=== PATIENT | male | born 1975 | race African-American/Black ===

== ENCOUNTER 2017-04-04 22:06 | Emergency (ER) | payer MEDICAID, OTHER ==
[2017-04-04] MEDS ORDERED: Sodium Chloride 0.9% 2.5 ML Syringe FLUSH PRN (23:28)
[2017-04-04] MEDS ORDERED: Sodium Chloride 0.9% 10 ML Syringe FLUSH PRN (23:28)
[2017-04-04] MEDS ORDERED: Ketorolac 30 MG/ML SDV IVPUSH ONE (23:32)
[2017-04-04] MEDS ORDERED: Sodium Chloride 0.9% 1,000 ML IV ONE (23:32)
--- NOTE | 2017-04-04 23:32 | EDM.PDOC ---
ED HPI GENERAL MEDICAL PROBLEM - General Chief Complaint: General Stated Complaint: RT ABDOMINAL PAIN Time Seen by Provider: 04/04/17 23:22 - History of Present Illness INITIAL COMMENTS - FREE TEXT/NARRATIVE: HISTORY AND PHYSICAL: History of present illness: The patient is a 41-year-old male who states no medical history and presents with several weeks of right flank pain which has been on and off but it worsened tonight suddenly a few hours ago and has been radiating to his right lower abdomen. He has not had associated symptoms of fever chills chest pain shortness of breath nausea vomiting or diarrhea. He denies any urinary complaints such as hematuria or dysuria but states that tonight he felt like there was some pressure with his urination. Patient took ibuprofen before coming here and says that it helps. He has had no recent trauma. His no pain or swelling to his testicles The patient denies any midline back pain and has no radiation of the pain to his legs and no lower extremity weakness or neurosensory changes. Review of systems: As per history of present illness and below otherwise all systems reviewed and negative. Past medical history: As per history of present illness and as reviewed below otherwise noncontributory. Surgical history: As per history of present illness and as reviewed below otherwise noncontributory. Social history: No reported history of drug or alcohol abuse. Family history: As per history of present illness and as reviewed below otherwise noncontributory. Physical exam: General: Well-developed thin male who is nontoxic and moves easily in the ED without distress. HEENT: Atraumatic, normocephalic, negative for conjunctival pallor or scleral icterus, mucous membranes moist, throat clear, neck supple, nontender, trachea midline. Lungs: Clear to auscultation, breath sounds equal bilaterally, chest nontender. Heart: S1S2, regular, negative for clicks, rubs, or JVD. Abdomen: Soft, nondistended, nontender. There is no rebound guarding and bowel sounds are normoactive. I cannot elicit the pain on palpation. Negative for masses or hepatosplenomegaly. Negative for costovertebral tenderness. Pelvis: Stable nontender. Genitourinary: Deferred. Rectal: Deferred. Extremities: Atraumatic, negative for cords or calf pain. Neurovascular unremarkable. Neuro: Awake, alert, oriented. Cranial nerves II through XII unremarkable. Cerebellum unremarkable. Motor and sensory unremarkable throughout. Exam nonfocal. Diagnostics: UA urine cultures CBC CMP amylase lipase CT scan of the abdomen and pelvis Therapeutics: IV fluids Toradol Discussed all testing with the patient and will advise followup with provider in outpatient setting for further care and evaluation. Patient states he feels improved after the Toradol and IV fluids Impression: Right flank/abdomen pain etiology unclear stable Definitive disposition and diagnosis as appropriate pending reevaluation and review of above. Right Middle Back Pain Score (Numeric/FACES): 8 - Related Data Allergies Allergy/AdvReac Type Severity Reaction Status Date / Time diazepam [From Valium] Allergy Lightheaded Verified 10/06/16 14:33 ness haloperidol [From Haldol] Allergy Dizziness Verified 10/06/16 14:33 haloperidol lactate Allergy Dizziness Verified 10/06/16 14:33 [From Haldol] lithium Allergy Abdominal Verified 10/06/16 14:33 Cramps quetiapine fumarate Allergy catonic Verified 10/06/16 14:33 [From Seroquel] Home Meds: Home Meds [place] Carbonate 300 mg PO DAILY 04/22/16 [History] Past Medical History - Past Health History Medical/Surgical History: Denies Medical/Surgical History HEENT History: Reports: None Cardiovascular History: Reports: None Respiratory History: Reports: None Gastrointestinal History: Reports: None Genitourinary History: Reports: None Musculoskeletal History: Reports: None Neurological History: Reports: None Psychiatric History: Reports: Bipolar Endocrine/Metabolic History: Reports: None Hematologic History: Reports: None Immunologic History: Reports: None Oncologic (Cancer) History: Reports: None Dermatologic History: Reports: None - Infectious Disease History Infectious Disease History: Reports: None - Past Surgical History Head Surgeries/Procedures: Reports: None HEENT Surgical History: Reports: None Cardiovascular Surgical History: Reports: None Respiratory Surgical History: Reports: None GI Surgical History: Reports: None Male Surgical History: Reports: None Endocrine Surgical History: Reports: None Neurological Surgical History: Reports: None Musculoskeletal Surgical History: Reports: Other (See Below) Oncologic Surgical History: Reports: None Social & Family History - Family History Family Medical History: Noncontributory - Tobacco Use Smoking Status *Q: Current Every Day Smoker Years of Tobacco use: 11 Packs/Tins Daily: 1 Used Tobacco, but Quit: No Second Hand Smoke Exposure: No - Caffeine Use Caffeine Use: Reports: Coffee Caffeine Use Comment: 20 drinks/day - Recreational Drug Use Recreational Drug Use: No ED ROS GENERAL - Review of Systems Review Of Systems: ROS reveals no pertinent complaints other than HPI. ED EXAM, GENERAL - Physical Exam Exam: See Below (See dictation) Course - Vital Signs Last Recorded V/S: Last Vital Signs Temp 36.7 C 04/04/17 22:59 Pulse 59 L 04/04/17 22:59 Resp 16 04/04/17 22:59 BP 100/61 04/04/17 22:59 Pulse Ox 97 04/04/17 22:59 - Orders/Labs/Meds Orders: Active Orders 24 hr Category Date Time Status Abdomen Pelvis w wo Cont [CT] Stat Exams 04/04/17 23:28 Taken CULTURE URINE [RM] Stat Lab 04/04/17 23:18 Received Sodium Chloride 0.9% [Saline Flush] Med 04/04/17 23:28 Active 10 ml FLUSH ASDIRECTED PRN Sodium Chloride 0.9% [Saline Flush] Med 04/04/17 23:28 Active 2.5 ml FLUSH ASDIRECTED PRN Saline Lock Insert [OM.PC] Stat Oth 04/04/17 23:28 Ordered Medication Orders Sodium Chloride (Saline Flush) 10 ml FLUSH ASDIRECTED PRN PRN Reason: Keep Vein Open Sodium Chloride (Saline Flush) 2.5 ml FLUSH ASDIRECTED PRN PRN Reason: Keep Vein Open Labs: Laboratory Tests 04/04/17 04/04/17 04/04/17 Range/Units 23:18 23:33 23:33 WBC 5.45 (4.0-11.0) K/uL RBC 4.43 L (4.50-5.90) M/uL Hgb 12.7 L (13.0-17.0) g/dL Hct 37.9 L (38.0-50.0) % MCV 85.6 (80.0-98.0) fL MCH 28.7 (27.0-32.0) pg MCHC 33.5 (31.0-37.0) g/dL RDW Std Deviation 43.6 (28.0-62.0) fl RDW Coeff of Jose 14 (11.0-15.0) % Plt Count 171 (150-400) K/uL MPV 9.60 (7.40-12.00) fL Neut % (Auto) 36.0 L (48.0-80.0) % Lymph % (Auto) 56.1 H (16.0-40.0) % Schley % (Auto) 6.6 (0.0-15.0) % Eos % (Auto) 0.9 (0.0-7.0) % Baso % (Auto) 0.4 (0.0-1.5) % Neut # (Auto) 2.0 (1.4-5.7) K/uL Lymph # (Auto) 3.1 H (0.6-2.4) K/uL Schley # (Auto) 0.4 (0.0-0.8) K/uL Eos # (Auto) 0.1 (0.0-0.7) K/uL Baso # (Auto) 0.0 (0.0-0.1) K/uL Nucleated RBC % 0.0 /100WBC Nucleated RBCs # 0 K/uL Sodium 137 (136-146) mmol/L Potassium 4.0 (3.5-5.1) mmol/L Chloride 107 (98-110) mmol/L Carbon Dioxide 21 (21-31) mmol/L BUN 15 (6.0-23.0) mg/dL Creatinine 1.1 (0.6-1.5) mg/dL Est Cr Clr Drug Dosing 85.05 mL/min Estimated GFR (MDRD) > 60.0 ml/min Glucose 89 (60-110) mg/dL Calcium 9.2 (8.8-10.8) mg/dL Total Bilirubin 0.5 (0.1-1.5) mg/dL AST 28 (5-40) IU/L ALT 32 (8-54) IU/L Alkaline Phosphatase 67 (40-150) Total Protein 6.9 (6.0-8.0) g/dL Albumin 4.2 (3.5-5.0) g/dL Globulin 2.7 (2.0-3.5) g/dL Albumin/Globulin Ratio 1.6 (1.3-2.8) Amylase 63 (10-90) U/L Lipase 9 (7-80) U/L Urine Color YELLOW Urine Appearance CLEAR Urine pH 6.0 (5.0-8.0) Ur Specific [place] <= 1.005 (1.001-1.035) Urine Protein NEGATIVE (NEGATIVE) mg/dL Urine Glucose (UA) NEGATIVE (NEGATIVE) mg/dL Urine Ketones NEGATIVE (NEGATIVE) mg/dL Urine Occult Blood NEGATIVE (NEGATIVE) Urine Nitrite NEGATIVE (NEGATIVE) Urine Bilirubin NEGATIVE (NEGATIVE) Urine Urobilinogen 0.2 (<2.0) EU/dL Ur Leukocyte Esterase NEGATIVE (NEGATIVE) Urine RBC NONE SEEN (0-2/HPF) Urine WBC NONE SEEN (0-5/HPF) Ur Epithelial Cells RARE (NONE-FEW) Urine Bacteria RARE (NEGATIVE) Meds: Medications Generic Name Dose Route Start Last Admin Trade Name Freq PRN Reason Stop Dose Admin Sodium Chloride 10 ml 04/04/17 23:28 Saline Flush FLUSH ASDIRECTED PRN Keep Vein Open Sodium Chloride 2.5 ml 04/04/17 23:28 Saline Flush FLUSH ASDIRECTED PRN Keep Vein Open Discontinued Medications Generic Name Dose Route Start Last Admin Trade Name Freq PRN Reason Stop Dose Admin Sodium Chloride 1,000 mls @ 999 mls/hr 04/04/17 23:32 04/04/17 23:47 Normal Saline IV 04/05/17 00:32 999 mls/hr STAT ONE Administration Iopamidol 83 ml 04/05/17 00:45 04/05/17 00:45 Isovue Multipack-370 (76%) IVPUSH 04/05/17 00:46 83 ml ONETIME STA Administration Ketorolac Tromethamine 30 mg 04/04/17 23:32 04/04/17 23:48 Toradol IVPUSH 04/04/17 23:33 30 mg ONETIME ONE Administration Departure - Departure Time of Disposition: 01:36 Disposition: Home, Self-Care 01 Condition: good Clinical Impression: Right flank pain - Discharge Information Forms: ED Department Discharge Additional Instructions: The following information is given to patients seen in the emergency department who are being discharged to home. This information is to outline your options for follow-up care. We provide all patients seen in our emergency department with a follow-up referral. The need for follow-up, as well as the timing and circumstances, are variable depending upon the specifics of your emergency department visit. If you don't have a primary care physician on staff, we will provide you with a referral. We always advise you to contact your personal physician following an emergency department visit to inform them of the circumstance of the visit and for follow-up with them and/or the need for any referrals to a consulting specialist. The emergency department will also refer you to a specialist when appropriate. This referral assures that you have the opportunity for followup care with a specialist. All of these measure are taken in an effort to provide you with optimal care, which includes your followup. Under all circumstances we always encourage you to contact your private physician who remains a resource for coordinating your care. When calling for followup care, please make the office aware that this follow-up is from your recent emergency room visit. If for any reason you are refused follow-up, please contact the [facility] emergency department at and ask to speak to the emergency department charge nurse. [facility] Primary care- [place] [address] Push hydration and please call and followup with your provider or one of our clinic physicians this week. Return to ER as needed and as discussed. Please take [id number] ibuprofen 600 mg every 6-8 hours or Tylenol for the discomfort. If you need to use pain medication prescribed to you via [facility] --tramadol - My Orders Last 24 Hours: My Active Orders 04/04/17 23:18 CULTURE URINE [RM] Stat 04/04/17 23:28 Abdomen Pelvis w wo Cont [CT] Stat Sodium Chloride 0.9% [Saline Flush] 10 ml FLUSH ASDIRECTED PRN Sodium Chloride 0.9% [Saline Flush] 2.5 ml FLUSH ASDIRECTED PRN Saline Lock Insert [OM.PC] Stat - Assessment/Plan Last 24 Hours: My Active Orders 04/04/17 23:18 CULTURE URINE [RM] Stat 04/04/17 23:28 Abdomen Pelvis w wo Cont [CT] Stat Sodium Chloride 0.9% [Saline Flush] 10 ml FLUSH ASDIRECTED PRN Sodium Chloride 0.9% [Saline Flush] 2.5 ml FLUSH ASDIRECTED PRN Saline Lock Insert [OM.PC] Stat
[2017-04-05 00:15] LABS: CHLORIDE,CL 107 mmol/L (98-110); SODIUM,NA 137 mmol/L (136-146)
[2017-04-05] MEDS ORDERED: Iopamidol 755 MG/ML 500 ML Multipack Bottle IVPUSH STA (00:45)
[2017-04-05 02:39] VITALS: BP 110/67
--- NOTE | 2017-04-06 16:32 | CT ---
EXAM DATE: 04/04/17 PATIENT'S AGE: 41 Patient: CHEMA LANDEROS Facility: [place], [place] Site . Site : 1975 Study: CT Abdomen/Pelvis W/ and W/O Cont [id number]/14/2017 12:48:37 AM Ordering Physician: Zoila Ware Final Report: INDICATION: Right-sided pain radiating to groin TECHNIQUE: CT abdomen and pelvis acquired without and with 83 cc Isovue 370 IV contrast. COMPARISON: None FINDINGS: Lower chest: Unremarkable. Liver: Unremarkable. Spleen: Unremarkable. Pancreas: Unremarkable. Gallbladder and bile ducts: Unremarkable. Adrenal glands: Unremarkable. Kidneys: Unremarkable. GI tract: Unremarkable. Appendix is not seen on this exam. Vascular structures: Unremarkable. Lymph nodes: Unremarkable. Miscellaneous: Unremarkable. No free air or significant free fluid. Pelvic Organs: Unremarkable. Bones: Unremarkable for age. IMPRESSION: No acute intra-abdominal inflammatory process identified. No renal stone or hydronephrosis. Note that the appendix was not visualized on this exam. Dictated by Pham Ma MD @ Apr 05 2017 1:04AM (Electronic Signature) Report Signed by Proxy. [facility] CENTERAshok
== END 2017-04-05 02:05 | disposition home or self-care (01) ==
LOC: MW.ED 22:06
DX: R10.9 Unspecified abdominal pain (principal); F17.210 Nicotine dependence, cigarettes, uncomplicated; Z88.8 Allergy status to other drugs, medicaments and biological substances; Z88.6 Allergy status to analgesic agent; Z79.899 Other long term (current) drug therapy
CPT/HCPCS: 74178; 80053; 81001; 82150; 83690; 85025; 87086; 96361; 96374; 99284; J1885; J7040; Q9967

== ENCOUNTER 2017-06-15 11:59 | Emergency (ER) | payer SELFPAY ==
--- NOTE | 2017-06-15 12:52 | EDM.PDOC ---
ED HPI GENERAL MEDICAL PROBLEM - General Chief Complaint: Lower Extremity Injury/Pain Stated Complaint: BACK PAIN Time Seen by Provider: 06/15/17 12:04 Source of Information: Reports: Patient History Limitations: Reports: No Limitations - History of Present Illness INITIAL COMMENTS - FREE TEXT/NARRATIVE: History of present illness: []Patient complains of right flank pain radiating to his right groin. He denies any blood or with urination, fevers, chills, nausea or vomiting. Patient apparently told triage nurse that he is having leg pain however he adamantly denies this to me and states when he was a child he broke his tooth and had a shot in his right but ever since then he has had leg itching sensations in his posterior thigh. He is not having any of this at this time and is not related to his right lower back pain. Review of systems: As per history of present illness and below otherwise all systems reviewed and negative. Past medical history: As per history of present illness and as reviewed below otherwise noncontributory. Surgical history: As per history of present illness and as reviewed below otherwise noncontributory. Social history: No reported history of drug or alcohol abuse. Family history: As per history of present illness and as reviewed below otherwise noncontributory. Physical exam: General: Well developed, well nourished in NAD HEENT: Atraumatic, normocephalic, pupils reactive, negative for conjunctival pallor or scleral icterus, mucous membranes moist, throat clear, neck supple, nontender, trachea midline. Lungs: Clear to auscultation, breath sounds equal bilaterally, chest nontender. Heart: S1S2, regular, negative for clicks, rubs, or JVD. Abdomen: Soft, nondistended, nontender. Negative for masses or hepatosplenomegaly. Negative for costovertebral tenderness. Pelvis: Stable nontender. Genitourinary: Deferred. Rectal: Deferred. Extremities: Atraumatic, negative for cords or calf pain. Neurovascular unremarkable. Neuro: Awake, alert, oriented. Cranial nerves II through XII unremarkable. Cerebellum unremarkable. Motor and sensory unremarkable throughout. Exam nonfocal. Diagnostics: []UA negative for blood Therapeutics: []Toradol was given with improvement of pain Impression: []Chronic low back pain Plan: []Motrin for pain, follow-up with a regular physician Definitive disposition and diagnosis as appropriate pending reevaluation and review of above. right lower extremity Pain Score (Numeric/FACES): 10 - Related Data Allergies Allergy/AdvReac Type Severity Reaction Status Date / Time diazepam [From Valium] Allergy Lightheaded Verified 06/15/17 12:21 ness haloperidol [From Haldol] Allergy Dizziness Verified 06/15/17 12:21 haloperidol lactate Allergy Dizziness Verified 06/15/17 12:21 [From Haldol] lithium Allergy Abdominal Verified 06/15/17 12:21 Cramps quetiapine fumarate Allergy catonic Verified 06/15/17 12:21 [From Seroquel] Home Meds: Home Meds [place] Carbonate 300 mg PO DAILY 04/22/16 [History] Past Medical History - Past Health History Medical/Surgical History: Denies Medical/Surgical History HEENT History: Reports: None Cardiovascular History: Reports: None Respiratory History: Reports: None Gastrointestinal History: Reports: None Genitourinary History: Reports: None Musculoskeletal History: Reports: None Neurological History: Reports: None Psychiatric History: Reports: Bipolar Endocrine/Metabolic History: Reports: None Hematologic History: Reports: None Immunologic History: Reports: None Oncologic (Cancer) History: Reports: None Dermatologic History: Reports: None - Infectious Disease History Infectious Disease History: Reports: None - Past Surgical History Head Surgeries/Procedures: Reports: None HEENT Surgical History: Reports: None Cardiovascular Surgical History: Reports: None Respiratory Surgical History: Reports: None GI Surgical History: Reports: None Male Surgical History: Reports: None Endocrine Surgical History: Reports: None Neurological Surgical History: Reports: None Musculoskeletal Surgical History: Reports: Other (See Below) Oncologic Surgical History: Reports: None Social & Family History - Family History Family Medical History: Noncontributory - Tobacco Use Smoking Status *Q: Current Every Day Smoker Years of Tobacco use: 10 Packs/Tins Daily: 1 Used Tobacco, but Quit: No Second Hand Smoke Exposure: No - Caffeine Use Caffeine Use: Reports: Coffee Caffeine Use Comment: 20 drinks/day - Recreational Drug Use Recreational Drug Use: No Review of Systems - Review of Systems Review Of Systems: See Below ED EXAM, GENERAL - Physical Exam Exam: See Below (See history of present illness) Course - Vital Signs Last Recorded V/S: Last Vital Signs Temp 36.9 C 06/15/17 12:10 Pulse 63 06/15/17 12:10 Resp 18 06/15/17 12:10 BP 109/58 L 06/15/17 12:10 Pulse Ox 96 06/15/17 12:10 - Orders/Labs/Meds Labs: Laboratory Tests 06/15/17 Range/Units 13:10 Urine Color YELLOW Urine Appearance CLEAR Urine pH 6.0 (5.0-8.0) Ur Specific [place] 1.010 (1.001-1.035) Urine Protein NEGATIVE (NEGATIVE) mg/dL Urine Glucose (UA) NEGATIVE (NEGATIVE) mg/dL Urine Ketones TRACE H (NEGATIVE) mg/dL Urine Occult Blood NEGATIVE (NEGATIVE) Urine Nitrite NEGATIVE (NEGATIVE) Urine Bilirubin NEGATIVE (NEGATIVE) Urine Urobilinogen 0.2 (<2.0) EU/dL Ur Leukocyte Esterase NEGATIVE (NEGATIVE) Urine RBC 0-1 (0-2/HPF) Urine WBC 0-1 (0-5/HPF) Ur Epithelial Cells RARE (NONE-FEW) Urine Bacteria RARE (NEGATIVE) Meds: Medications Discontinued Medications Generic Name Dose Route Start Last Admin Trade Name Eliasq PRN Reason Stop Dose Admin Ketorolac Tromethamine 60 mg 06/15/17 12:59 06/15/17 13:32 Toradol IM 06/15/17 13:00 60 mg ONETIME ONE Administration Departure - Departure Time of Disposition: 14:01 Disposition: Home, Self-Care 01 Condition: Good Clinical Impression: Right flank pain, chronic - Discharge Information Forms: ED Department Discharge Additional Instructions: The following information is given to patients seen in the emergency department who are being discharged to home. This information is to outline your options for follow-up care. We provide all patients seen in our emergency department with a follow-up referral. The need for follow-up, as well as the timing and circumstances, are variable depending upon the specifics of your emergency department visit. If you don't have a primary care physician on staff, we will provide you with a referral. We always advise you to contact your personal physician following an emergency department visit to inform them of the circumstance of the visit and for follow-up with them and/or the need for any referrals to a consulting specialist. The emergency department will also refer you to a specialist when appropriate. This referral assures that you have the opportunity for follow-up care with a specialist. All of these measure are taken in an effort to provide you with optimal care, which includes your follow-up. Under all circumstances we always encourage you to contact your private physician who remains a resource for coordinating your care. When calling for follow-up care, please make the office aware that this follow-up is from your recent emergency room visit. If for any reason you are refused follow-up, please contact the [facility] Emergency Department at and asked to speak to the emergency department charge nurse. Christian for pain ice to back follow-up with primary care [facility] Primary Care [facility] [place] [id number]
[2017-06-15] MEDS ORDERED: Ketorolac 60 MG/2 ML SDV IM ONE (12:59)
[2017-06-15 14:22] VITALS: BP 138/63
== END 2017-06-15 14:15 | disposition home or self-care (01) ==
LOC: MW.ED 11:59
DX: M54.5 Low back pain (principal); R10.9 Unspecified abdominal pain; F17.210 Nicotine dependence, cigarettes, uncomplicated; Z88.5 Allergy status to narcotic agent; Z88.8 Allergy status to other drugs, medicaments and biological substances; Z79.899 Other long term (current) drug therapy
CPT/HCPCS: 81001; 96372; 99283; J1885

== ENCOUNTER 2017-07-04 12:57 | Emergency (ER) | payer OTHER ==
[2017-07-04] MEDS ORDERED: Ketorolac 60 MG/2 ML SDV IM ONE (13:29)
--- NOTE | 2017-07-04 13:35 | EDM.PDOC ---
ED HPI GENERAL MEDICAL PROBLEM - General Chief Complaint: Back Pain or Injury Stated Complaint: BACK PAIN Time Seen by Provider: 07/04/17 13:20 Source of Information: Reports: Patient History Limitations: Reports: No Limitations - History of Present Illness INITIAL COMMENTS - FREE TEXT/NARRATIVE: HISTORY AND PHYSICAL: History of present illness: [Patient comes to the emergency room complaining of chronic low back pain. He is well-known to this ER and has been seen in the past for the same complaints. He states that his pain is unchanged but that he has run out of diclofenac and requests a refill. He is also received an injection for his low back pain and he would like this repeated today as well. He has no other complaints or concern. He denies radiation of his pain. No new pain locations for change in his pain. He has been unable to establish care with a local PCP as he is still waiting to be eligible for insurance through his job. He denies fever and chills. No change to bowel or bladder. No blood in his urine. No abdominal pain, nausea or vomiting. No difficulty urinating or hematuria.] Review of systems: As per history of present illness and below otherwise all systems reviewed and negative. Past medical history: As per history of present illness and as reviewed below otherwise noncontributory. Surgical history: As per history of present illness and as reviewed below otherwise noncontributory. Social history: No reported history of drug or alcohol abuse. Family history: As per history of present illness and as reviewed below otherwise noncontributory. Physical exam: HEENT: Atraumatic, normocephalic.sounds equal bilaterally, chest nontender. Back: He is tender over lumbar spine musculature. No diminished range of motion. Patellar reflexes 2+ and equal. Extremities: Neurovascular unremarkable. Neuro: Awake, alert, oriented. Motor and sensory unremarkable throughout. Exam nonfocal. Therapeutics: [Toradol 60 mg IM] Impression: [Low back pain, chronic] Plan: [Discussed with patient that he certainly needs to follow-up with a PCP when he gets insurance. Rx written for diclofenac 50 mg #30 si by mouth 3 times a day 0 refills. Toradol 60 mg given IM in the ER. Patients in agreement with today's plan. All of his questions are answered and concerns are addressed.] Definitive disposition and diagnosis as appropriate pending reevaluation and review of above. Back Pain Score (Numeric/FACES): 10 - Related Data Allergies Allergy/AdvReac Type Severity Reaction Status Date / Time diazepam [From Valium] Allergy Lightheaded Verified 07/04/17 13:27 ness haloperidol [From Haldol] Allergy Dizziness Verified 07/04/17 13:27 haloperidol lactate Allergy Dizziness Verified 07/04/17 13:27 [From Haldol] lithium Allergy Abdominal Verified 07/04/17 13:27 Cramps quetiapine fumarate Allergy catonic Verified 07/04/17 13:27 [From Seroquel] Home Meds: Home Meds [place] Carbonate 300 mg PO DAILY 04/22/16 [History] Past Medical History - Past Health History Medical/Surgical History: Denies Medical/Surgical History HEENT History: Reports: None Cardiovascular History: Reports: None Respiratory History: Reports: None Gastrointestinal History: Reports: None Genitourinary History: Reports: None Musculoskeletal History: Reports: None Neurological History: Reports: None Psychiatric History: Reports: Bipolar Endocrine/Metabolic History: Reports: None Hematologic History: Reports: None Immunologic History: Reports: None Oncologic (Cancer) History: Reports: None Dermatologic History: Reports: None - Infectious Disease History Infectious Disease History: Reports: None - Past Surgical History Head Surgeries/Procedures: Reports: None HEENT Surgical History: Reports: None Cardiovascular Surgical History: Reports: None Respiratory Surgical History: Reports: None GI Surgical History: Reports: None Male Surgical History: Reports: None Endocrine Surgical History: Reports: None Neurological Surgical History: Reports: None Musculoskeletal Surgical History: Reports: Other (See Below) Oncologic Surgical History: Reports: None Social & Family History - Family History Family Medical History: Noncontributory - Tobacco Use Smoking Status *Q: Never Smoker Years of Tobacco use: 10 Packs/Tins Daily: 1 Used Tobacco, but Quit: No Second Hand Smoke Exposure: No - Caffeine Use Caffeine Use: Reports: Coffee Caffeine Use Comment: 20 drinks/day - Recreational Drug Use Recreational Drug Use: No ED ROS GENERAL - Review of Systems Review Of Systems: ROS reveals no pertinent complaints other than HPI. ED EXAM,LOWER BACK PAIN/INJURY - Physical Exam Exam: See Below Course - Vital Signs Last Recorded V/S: Last Vital Signs Temp 98.0 F 07/04/17 13:13 Pulse 75 07/04/17 13:13 Resp 16 07/04/17 13:13 BP 124/74 07/04/17 13:13 Pulse Ox 95 07/04/17 13:13 - Orders/Labs/Meds Meds: Medications Discontinued Medications Generic Name Dose Route Start Last Admin Trade Name Jelani PRN Reason Stop Dose Admin Ketorolac Tromethamine 60 mg 07/04/17 13:29 07/04/17 13:47 Toradol IM 07/04/17 13:30 60 mg ONETIME ONE Administration Departure - Departure Time of Disposition: 13:40 Disposition: Home, Self-Care 01 Condition: Good Clinical Impression: Chronic low back pain - Discharge Information Instructions: Back Pain, Adult, [id number] Referrals: PCP,None [Primary Care Provider] - Forms: ED Department Discharge Additional Instructions: The following information is given to patients seen in the emergency department who are being discharged to home. This information is to outline your options for follow-up care. We provide all patients seen in our emergency department with a follow-up referral. The need for follow-up, as well as the timing and circumstances, are variable depending upon the specifics of your emergency department visit. If you don't have a primary care physician on staff, we will provide you with a referral. We always advise you to contact your personal physician following an emergency department visit to inform them of the circumstance of the visit and for follow-up with them and/or the need for any referrals to a consulting specialist. The emergency department will also refer you to a specialist when appropriate. This referral assures that you have the opportunity for follow-up care with a specialist. All of these measure are taken in an effort to provide you with optimal care, which includes your follow-up. Under all circumstances we always encourage you to contact your private physician who remains a resource for coordinating your care. When calling for follow-up care, please make the office aware that this follow-up is from your recent emergency room visit. If for any reason you are refused follow-up, please contact the [facility] emergency department at and asked to speak to the emergency department charge nurse. [address] [address] [facility] [address] [place] [id number] Follow-up with a local primary care provider at the clinic listed above when you get insurance. Take medications as prescribed. Return to ER as needed as discussed.
[2017-07-04 16:23] VITALS: BP 125/73
== END 2017-07-04 14:12 | disposition home or self-care (01) ==
LOC: MW.ED 12:57
DX: G89.29 Other chronic pain (principal); M54.5 Low back pain; Z88.5 Allergy status to narcotic agent; Z79.899 Other long term (current) drug therapy
CPT/HCPCS: 96372; 99283; J1885; 99282

== ENCOUNTER 2017-08-23 13:00 | Emergency (ER) | payer OTHER ==
--- NOTE | 2017-08-23 14:29 | EDM.PDOC ---
ED HPI GENERAL MEDICAL PROBLEM - General Chief Complaint: Back Pain or Injury Stated Complaint: BACK PAIN Time Seen by Provider: 08/23/17 14:25 Source of Information: Reports: Patient History Limitations: Reports: No Limitations - History of Present Illness INITIAL COMMENTS - FREE TEXT/NARRATIVE: HISTORY AND PHYSICAL: []42-year-old black male presenting to the emergency department with chronic back pain. Patient is well-known to the ER staff. 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 Patient relates no injury associated with this pain Pain is in the same areas as he has previously stated lumbar on the right side and thoracic on the left Review of Systems: As per history of present illness and below otherwise all systems reviewed and negative. Past medical history: As per history of present illness and as reviewed below otherwise noncontributory. Surgical history: As per history of present illness and as reviewed below otherwise noncontributory. Social history: No reported history of drug or alcohol abuse. Family history: As per history of present illness and as reviewed below otherwise noncontributory. Physical exam: Alert and oriented gentleman who states that he has no insurance and cannot see his primary care provider to take care of this or be referred to a specialist HEENT: Atraumatic, normocehpalic, pupils reactive, negative for conjunctival pallor or scleral icterus, mucous membranes moist, throat clear, neck supple, nontender, trachea midline. Lungs: Clear to auscultation, breath sounds equal bilaterally, chest non tender. Heart: S1S2, regular, negative for clicks, rubs, or JVD. Abdomen: Soft, nondistended, nontender. Negative for masses or hepatossplenmegaly. Negative for costovertebral tenderness. Patient is tender to the right lumbar radiates down to his upper thigh but this is unchanged and does not radiate to his foot or lower leg. Worsening of the left thoracic with some edema present you can see spasms noted to this area Pelvis: Stable nontender. Genitourinary: Deferred. Rectal: Deferred Extremities: Atraumatic, negative for cords or calf pain. Neurovascular unremarkable. Neuro: Awake, alert, oriented. Cranial nerves II through XII unremarkable. Cerebellum unremarkable. Motor and sensory unremarkable throughout. Exam nonfocal. Diagnostics: [] Therapeutics: [Toradol 60 IM Norflex] Impression: [Chronic back pain] Plan: [Encouraged to establish with primary care He needs physical therapy to strengthen this area A note was given for work] Definitive disposition and diagnosis as appropriate pending reevaluation and review of above. Duration: Chronic Location: Reports: Back Lower Back Pain Score (Numeric/FACES): 10 - Related Data Allergies Allergy/AdvReac Type Severity Reaction Status Date / Time diazepam [From Valium] Allergy Lightheaded Verified 07/04/17 13:27 ness haloperidol [From Haldol] Allergy Dizziness Verified 07/04/17 13:27 haloperidol lactate Allergy Dizziness Verified 07/04/17 13:27 [From Haldol] lithium Allergy Abdominal Verified 07/04/17 13:27 Cramps quetiapine fumarate Allergy catonic Verified 07/04/17 13:27 [From Seroquel] Home Meds: Home Meds [place] Carbonate 300 mg PO DAILY 04/22/16 [History] Cyclobenzaprine [Flexeril] 10 mg PO TID #21 tablet 08/23/17 [Rx] Diclofenac Sodium [Diclofenac Sodium ER] 100 mg PO DAILY #21 tab.sr.24h [Rx] Past Medical History - Past Health History Medical/Surgical History: Denies Medical/Surgical History HEENT History: Reports: None Cardiovascular History: Reports: None Respiratory History: Reports: None Gastrointestinal History: Reports: None Genitourinary History: Reports: None Musculoskeletal History: Reports: None Neurological History: Reports: None Psychiatric History: Reports: Bipolar Endocrine/Metabolic History: Reports: None Hematologic History: Reports: None Immunologic History: Reports: None Oncologic (Cancer) History: Reports: None Dermatologic History: Reports: None - Infectious Disease History Infectious Disease History: Reports: None - Past Surgical History Head Surgeries/Procedures: Reports: None HEENT Surgical History: Reports: None Cardiovascular Surgical History: Reports: None Respiratory Surgical History: Reports: None GI Surgical History: Reports: None Male Surgical History: Reports: None Endocrine Surgical History: Reports: None Neurological Surgical History: Reports: None Musculoskeletal Surgical History: Reports: Other (See Below) Oncologic Surgical History: Reports: None Social & Family History - Family History Family Medical History: Noncontributory - Tobacco Use Smoking Status *Q: Current Every Day Smoker Years of Tobacco use: 11 Packs/Tins Daily: 1 Used Tobacco, but Quit: No Second Hand Smoke Exposure: No - Caffeine Use Caffeine Use: Reports: Coffee Caffeine Use Comment: 20 drinks/day - Recreational Drug Use Recreational Drug Use: No ED ROS GENERAL - Review of Systems Review Of Systems: ROS reveals no pertinent complaints other than HPI. ED EXAM,LOWER BACK PAIN/INJURY - Physical Exam Exam: See Below (See dictation) Course - Vital Signs Last Recorded V/S: Last Vital Signs Temp 36.7 C 08/23/17 13:40 Pulse 64 08/23/17 13:40 Resp 18 08/23/17 13:40 BP 130/67 08/23/17 13:40 Pulse Ox 99 08/23/17 13:40 Departure - Departure Time of Disposition: 14:36 Disposition: Home, Self-Care 01 Condition: Good Clinical Impression: Chronic back pain Qualifiers: Back pain location: low back pain Back pain laterality: bilateral Sciatica presence: without sciatica Qualified Code(s): M54.5 - Low back pain; G89.29 - Other chronic pain; G89.29 - Other chronic pain - Discharge Information Prescriptions: Cyclobenzaprine [Flexeril] 10 mg PO TID #21 tablet Diclofenac Sodium [Diclofenac Sodium ER] 100 mg PO DAILY #21 tab.sr.24h Instructions: Muscle Strain, [id number] Referrals: PCP,None [Primary Care Provider] - Forms: ED Department Discharge
[2017-08-23] MEDS ORDERED: Ketorolac 60 MG/2 ML SDV IM ONE (14:44)
[2017-08-23 15:20] VITALS: BP 110/58
== END 2017-08-23 15:20 | disposition home or self-care (01) ==
LOC: MW.ED 13:00
DX: M54.5 Low back pain (principal); G89.29 Other chronic pain; F17.210 Nicotine dependence, cigarettes, uncomplicated; Z88.5 Allergy status to narcotic agent; Z88.8 Allergy status to other drugs, medicaments and biological substances; Z79.899 Other long term (current) drug therapy
CPT/HCPCS: 96372; 99283; J1885; J2360; 99282

== ENCOUNTER 2017-09-23 14:40 | Emergency (ER) | payer SELFPAY ==
[2017-09-23 14:49] VITALS: BP 101/63
--- NOTE | 2017-09-23 14:53 | EDM.PDOC ---
ED HPI GENERAL MEDICAL PROBLEM - General Chief Complaint: Back Pain or Injury Stated Complaint: back pain Time Seen by Provider: 09/23/17 14:45 - History of Present Illness INITIAL COMMENTS - FREE TEXT/NARRATIVE: HISTORY AND PHYSICAL: History of present illness: Patient is 42-year-old male history of chronic back pain who presents with a concern of back pain he has been seen here multiple times for same he denies numbness weakness incontinence or retention bowel or bladder denies other concern Review of systems: As per history of present illness and below otherwise all systems reviewed and negative. Past medical history: As per history of present illness and as reviewed below otherwise noncontributory. Surgical history: As per history of present illness and as reviewed below otherwise noncontributory. Social history: No reported history of drug or alcohol abuse. Family history: As per history of present illness and as reviewed below otherwise noncontributory. Physical exam: HEENT: Atraumatic, normocephalic, pupils reactive, negative for conjunctival pallor or scleral icterus, mucous membranes moist, throat clear, neck supple, nontender, trachea midline. Lungs: Clear to auscultation, breath sounds equal bilaterally, chest nontender. Heart: S1S2, regular, negative for clicks, rubs, or JVD. Abdomen: Soft, nondistended, nontender. Negative for masses or hepatosplenomegaly. Negative for costovertebral tenderness. Pelvis: Stable nontender. Genitourinary: Deferred. Rectal: Deferred. Extremities: Atraumatic, negative for cords or calf pain. Neurovascular unremarkable. Neuro: Awake, alert, oriented. Cranial nerves II through XII unremarkable. Cerebellum unremarkable. Motor and sensory unremarkable throughout. Exam nonfocal. Back: Patient has no vertebral body or point tenderness is able stand on his toes back on his heels deep tendon reflexes are normal motor and sensory are normal Diagnostics: None Therapeutics: None Impression: #1 chronic back pain Definitive disposition and diagnosis as appropriate pending reevaluation and review of above. Back Pain Score (Numeric/FACES): 10 - Related Data Allergies Allergy/AdvReac Type Severity Reaction Status Date / Time diazepam [From Valium] Allergy Lightheaded Verified 09/23/17 14:49 ness haloperidol [From Haldol] Allergy Dizziness Verified 09/23/17 14:49 haloperidol lactate Allergy Dizziness Verified 09/23/17 14:49 [From Haldol] lithium Allergy Abdominal Verified 09/23/17 14:49 Cramps quetiapine fumarate Allergy catonic Verified 09/23/17 14:49 [From Seroquel] Home Meds: Home Meds [place] Carbonate 300 mg PO DAILY 04/22/16 [History] Cyclobenzaprine [Flexeril] 10 mg PO TID #21 tablet 08/23/17 [Rx] Diclofenac Sodium [Diclofenac Sodium ER] 100 mg PO DAILY #21 tab.sr.24h [Rx] Past Medical History - Past Health History Medical/Surgical History: Denies Medical/Surgical History HEENT History: Reports: None Cardiovascular History: Reports: None Respiratory History: Reports: None Gastrointestinal History: Reports: None Genitourinary History: Reports: None Musculoskeletal History: Reports: None Neurological History: Reports: None Psychiatric History: Reports: Bipolar Endocrine/Metabolic History: Reports: None Hematologic History: Reports: None Immunologic History: Reports: None Oncologic (Cancer) History: Reports: None Dermatologic History: Reports: None - Infectious Disease History Infectious Disease History: Reports: None - Past Surgical History Head Surgeries/Procedures: Reports: None HEENT Surgical History: Reports: None Cardiovascular Surgical History: Reports: None Respiratory Surgical History: Reports: None GI Surgical History: Reports: None Male Surgical History: Reports: None Endocrine Surgical History: Reports: None Neurological Surgical History: Reports: None Musculoskeletal Surgical History: Reports: Other (See Below) Oncologic Surgical History: Reports: None Social & Family History - Family History Family Medical History: Noncontributory - Tobacco Use Smoking Status *Q: Current Every Day Smoker Years of Tobacco use: 11 Packs/Tins Daily: 1 Used Tobacco, but Quit: No Second Hand Smoke Exposure: No - Caffeine Use Caffeine Use: Reports: Coffee Caffeine Use Comment: 20 drinks/day - Recreational Drug Use Recreational Drug Use: No ED ROS GENERAL - Review of Systems Review Of Systems: ROS reveals no pertinent complaints other than HPI. ED EXAM, GENERAL - Physical Exam Exam: See Below (The dictation) Course - Vital Signs Last Recorded V/S: Last Vital Signs Temp 36.2 C 09/23/17 14:45 Pulse 61 09/23/17 14:45 Resp 16 09/23/17 14:45 BP 101/63 09/23/17 14:45 Pulse Ox 98 09/23/17 14:45 Departure - Departure Time of Disposition: 14:51 Disposition: Home, Self-Care 01 Condition: Good Clinical Impression: Chronic back pain - Discharge Information Referrals: PCP,None [Primary Care Provider] - Additional Instructions: The following information is given to patients seen in the emergency department who are being discharged to home. This information is to outline your options for follow-up care. We provide all patients seen in our emergency department with a follow-up referral. The need for follow-up, as well as the timing and circumstances, are variable depending upon the specifics of your emergency department visit. If you don't have a primary care physician on staff, we will provide you with a referral. We always advise you to contact your personal physician following an emergency department visit to inform them of the circumstance of the visit and for follow-up with them and/or the need for any referrals to a consulting specialist. The emergency department will also refer you to a specialist when appropriate. This referral assures that you have the opportunity for followup care with a specialist. All of these measure are taken in an effort to provide you with optimal care, which includes your followup. Under all circumstances we always encourage you to contact your private physician who remains a resource for coordinating your care. When calling for followup care, please make the office aware that this follow-up is from your recent emergency room visit. If for any reason you are refused follow-up, please contact the [facility] emergency department at and asked to speak to the emergency department charge nurse. EL[facility] [address] [place] [id number] [facility] [address] [place] [id number] Motrin as prescribed call to schedule a routine appointment with primary care above and pain clinic return as needed as discussed
== END 2017-09-23 15:15 | disposition home or self-care (01) ==
LOC: MW.ED 14:40
DX: G89.29 Other chronic pain (principal); M54.9 Dorsalgia, unspecified; F17.210 Nicotine dependence, cigarettes, uncomplicated; Z79.899 Other long term (current) drug therapy; Z88.8 Allergy status to other drugs, medicaments and biological substances
CPT/HCPCS: 99283

== ENCOUNTER 2017-09-25 18:30 | Emergency (ER) | payer SELFPAY ==
[2017-09-25 18:54] VITALS: BP 112/63
--- NOTE | 2017-09-25 19:21 | EDM.PDOC ---
ED HPI GENERAL MEDICAL PROBLEM - General Chief Complaint: General Stated Complaint: BACK PAIN Time Seen by Provider: 09/25/17 18:55 Source of Information: Reports: Patient History Limitations: Reports: No Limitations - History of Present Illness INITIAL COMMENTS - FREE TEXT/NARRATIVE: HISTORY AND PHYSICAL: History of present illness: [Patient comes to the emergency room reporting that he has a history of bipolar disorder and has been manic for many years. He is unable to get scheduled with a psychiatrist until October 11. He feels that this is too long to wait. His thoughts are fast and he has difficulty sleeping which is one of his primary concerns today. He has not been on lithium for several years but would like to restart this. He denies any thoughts of suicide, self-harm or homicide. He has no other complaints today.] Review of systems: As per history of present illness and below otherwise all systems reviewed and negative. Past medical history: As per history of present illness and as reviewed below otherwise noncontributory. Surgical history: As per history of present illness and as reviewed below otherwise noncontributory. Social history: No reported history of drug or alcohol abuse. Family history: As per history of present illness and as reviewed below otherwise noncontributory. Physical exam: HEENT: Atraumatic, normocephalic. Extremities: Neurovascular unremarkable. Neuro: Awake, alert, oriented. Speech is fast and thoughts are congruent. Motor and sensory unremarkable throughout. Exam nonfocal. Impression: [Torrie, bipolar disorder] Plan: [Recommend melatonin, available [id number], as needed for sleep. He is given a handout for [facility] walk-in hours. He is encouraged to follow-up there on Thursday to be evaluated. He verbalized understanding of today' s discussion. All of his questions are answered and concerns are addressed.] Definitive disposition and diagnosis as appropriate pending reevaluation and review of above. Headache Pain Score (Numeric/FACES): 8 - Related Data Allergies Allergy/AdvReac Type Severity Reaction Status Date / Time diazepam [From Valium] Allergy Lightheaded Verified 09/25/17 18:54 ness haloperidol [From Haldol] Allergy Dizziness Verified 09/25/17 18:54 haloperidol lactate Allergy Dizziness Verified 09/25/17 18:54 [From Haldol] lithium Allergy Abdominal Verified 09/25/17 18:54 Cramps quetiapine fumarate Allergy catonic Verified 09/25/17 18:54 [From Seroquel] Home Meds: Home Meds [place] Carbonate 300 mg PO DAILY 04/22/16 [History] Cyclobenzaprine [Flexeril] 10 mg PO TID #21 tablet 08/23/17 [Rx] Diclofenac Sodium [Diclofenac Sodium ER] 100 mg PO DAILY #21 tab.sr.24h [Rx] Past Medical History - Past Health History Medical/Surgical History: Denies Medical/Surgical History HEENT History: Reports: None Cardiovascular History: Reports: None Respiratory History: Reports: None Gastrointestinal History: Reports: None Genitourinary History: Reports: None Musculoskeletal History: Reports: None Neurological History: Reports: None Psychiatric History: Reports: Bipolar Endocrine/Metabolic History: Reports: None Hematologic History: Reports: None Immunologic History: Reports: None Oncologic (Cancer) History: Reports: None Dermatologic History: Reports: None - Infectious Disease History Infectious Disease History: Reports: None - Past Surgical History Head Surgeries/Procedures: Reports: None HEENT Surgical History: Reports: None Cardiovascular Surgical History: Reports: None Respiratory Surgical History: Reports: None GI Surgical History: Reports: None Male Surgical History: Reports: None Endocrine Surgical History: Reports: None Neurological Surgical History: Reports: None Musculoskeletal Surgical History: Reports: Other (See Below) Oncologic Surgical History: Reports: None Social & Family History - Family History Family Medical History: Noncontributory - Tobacco Use Smoking Status *Q: Never Smoker Years of Tobacco use: 11 Packs/Tins Daily: 1 Used Tobacco, but Quit: No Second Hand Smoke Exposure: No - Caffeine Use Caffeine Use: Reports: Coffee Caffeine Use Comment: 20 drinks/day - Recreational Drug Use Recreational Drug Use: No ED ROS GENERAL - Review of Systems Review Of Systems: ROS reveals no pertinent complaints other than HPI. ED EXAM, GENERAL - Physical Exam Exam: See Below Course - Vital Signs Last Recorded V/S: Last Vital Signs Temp 98.5 F 09/25/17 18:52 Pulse 85 09/25/17 18:52 Resp 18 09/25/17 18:52 BP 112/63 09/25/17 18:52 Pulse Ox 95 09/25/17 18:52 Departure - Departure Time of Disposition: 19:22 Disposition: Home, Self-Care 01 Condition: Good Clinical Impression: Torrie - Discharge Information Referrals: PCP,None [Primary Care Provider] - Additional Instructions: The following information is given to patients seen in the emergency department who are being discharged to home. This information is to outline your options for follow-up care. We provide all patients seen in our emergency department with a follow-up referral. The need for follow-up, as well as the timing and circumstances, are variable depending upon the specifics of your emergency department visit. If you don't have a primary care physician on staff, we will provide you with a referral. We always advise you to contact your personal physician following an emergency department visit to inform them of the circumstance of the visit and for follow-up with them and/or the need for any referrals to a consulting specialist. The emergency department will also refer you to a specialist when appropriate. This referral assures that you have the opportunity for follow-up care with a specialist. All of these measure are taken in an effort to provide you with optimal care, which includes your follow-up. Under all circumstances we always encourage you to contact your private physician who remains a resource for coordinating your care. When calling for follow-up care, please make the office aware that this follow-up is from your recent emergency room visit. If for any reason you are refused follow-up, please contact the [facility] emergency department at and asked to speak to the emergency department charge nurse. [facility] [address] [place] [id number] Follow-up at the above listed clinic. Return to ER as needed as discussed.
== END 2017-09-25 19:32 | disposition home or self-care (01) ==
LOC: MW.ED 18:30
DX: F31.9 Bipolar disorder, unspecified (principal); Z88.8 Allergy status to other drugs, medicaments and biological substances; Z79.899 Other long term (current) drug therapy
CPT/HCPCS: 99283

== ENCOUNTER 2017-09-27 17:56 | Emergency (ER) | payer SELFPAY ==
[2017-09-27 19:05] VITALS: BP 101/55
--- NOTE | 2017-09-27 19:44 | EDM.PDOC ---
ED HPI GENERAL MEDICAL PROBLEM - General Chief Complaint: Back Pain or Injury Stated Complaint: PT HAS BACK PAINS Time Seen by Provider: 09/27/17 19:44 - History of Present Illness INITIAL COMMENTS - FREE TEXT/NARRATIVE: HISTORY AND PHYSICAL: History of present illness: Patient 42-year-old black male who presents with a concern of requesting referral for psychiatric services patient states he seen a psychiatrist in the past he is from out of town and requests referral he denies suicidal homicidal ideation he is alert and oriented 3 Review of systems: As per history of present illness and below otherwise all systems reviewed and negative. Past medical history: As per history of present illness and as reviewed below otherwise noncontributory. Surgical history: As per history of present illness and as reviewed below otherwise noncontributory. Social history: No reported history of drug or alcohol abuse. Family history: As per history of present illness and as reviewed below otherwise noncontributory. Physical exam: HEENT: Atraumatic, normocephalic, pupils reactive, negative for conjunctival pallor or scleral icterus, mucous membranes moist, throat clear, neck supple, nontender, trachea midline. Lungs: Clear to auscultation, breath sounds equal bilaterally, chest nontender. Heart: S1S2, regular, negative for clicks, rubs, or JVD. Abdomen: Soft, nondistended, nontender. Negative for masses or hepatosplenomegaly. Negative for costovertebral tenderness. Pelvis: Stable nontender. Genitourinary: Deferred. Rectal: Deferred. Extremities: Atraumatic, negative for cords or calf pain. Neurovascular unremarkable. Neuro: Awake, alert, oriented. Cranial nerves II through XII unremarkable. Cerebellum unremarkable. Motor and sensory unremarkable throughout. Exam nonfocal. Diagnostics: None Therapeutics: None Impression: #1 medical screening exam #2 psychiatric referral Definitive disposition and diagnosis as appropriate pending reevaluation and review of above. back Pain Score (Numeric/FACES): 10 - Related Data Allergies Allergy/AdvReac Type Severity Reaction Status Date / Time diazepam [From Valium] Allergy Lightheaded Verified 09/27/17 18:50 ness haloperidol [From Haldol] Allergy Dizziness Verified 09/27/17 18:50 haloperidol lactate Allergy Dizziness Verified 09/27/17 18:50 [From Haldol] lithium Allergy Abdominal Verified 09/27/17 18:50 Cramps quetiapine fumarate Allergy catonic Verified 09/27/17 18:50 [From Seroquel] Home Meds: Home Meds [place] Carbonate 300 mg PO DAILY 04/22/16 [History] Cyclobenzaprine [Flexeril] 10 mg PO TID #21 tablet 08/23/17 [Rx] Diclofenac Sodium [Diclofenac Sodium ER] 100 mg PO DAILY #21 tab.sr.24h [Rx] Past Medical History - Past Health History Medical/Surgical History: Denies Medical/Surgical History HEENT History: Reports: None Cardiovascular History: Reports: None Respiratory History: Reports: None Gastrointestinal History: Reports: None Genitourinary History: Reports: None Musculoskeletal History: Reports: None Neurological History: Reports: None Psychiatric History: Reports: Bipolar Endocrine/Metabolic History: Reports: None Hematologic History: Reports: None Immunologic History: Reports: None Oncologic (Cancer) History: Reports: None Dermatologic History: Reports: None - Infectious Disease History Infectious Disease History: Reports: None - Past Surgical History Head Surgeries/Procedures: Reports: None HEENT Surgical History: Reports: None Cardiovascular Surgical History: Reports: None Respiratory Surgical History: Reports: None GI Surgical History: Reports: None Male Surgical History: Reports: None Endocrine Surgical History: Reports: None Neurological Surgical History: Reports: None Musculoskeletal Surgical History: Reports: Other (See Below) Oncologic Surgical History: Reports: None Social & Family History - Family History Family Medical History: Noncontributory - Tobacco Use Smoking Status *Q: Current Every Day Smoker Years of Tobacco use: 7 Packs/Tins Daily: 1 Used Tobacco, but Quit: No Second Hand Smoke Exposure: No - Caffeine Use Caffeine Use: Reports: Coffee Caffeine Use Comment: 20 drinks/day - Recreational Drug Use Recreational Drug Use: No ED ROS GENERAL - Review of Systems Review Of Systems: ROS reveals no pertinent complaints other than HPI. ED EXAM, GENERAL - Physical Exam Exam: See Below (See dictated) Course - Vital Signs Last Recorded V/S: Last Vital Signs Temp 36.1 C 09/27/17 18:58 Pulse 64 09/27/17 18:58 Resp 18 09/27/17 18:58 BP 101/55 L 09/27/17 18:58 Pulse Ox 95 09/27/17 18:58 Departure - Departure Time of Disposition: 19:38 Disposition: Home, Self-Care 01 Condition: Good Clinical Impression: Encounter for medical screening examination - Discharge Information Referrals: PCP,None [Primary Care Provider] - Additional Instructions: The following information is given to patients seen in the emergency department who are being discharged to home. This information is to outline your options for follow-up care. We provide all patients seen in our emergency department with a follow-up referral. The need for follow-up, as well as the timing and circumstances, are variable depending upon the specifics of your emergency department visit. If you don't have a primary care physician on staff, we will provide you with a referral. We always advise you to contact your personal physician following an emergency department visit to inform them of the circumstance of the visit and for follow-up with them and/or the need for any referrals to a consulting specialist. The emergency department will also refer you to a specialist when appropriate. This referral assures that you have the opportunity for followup care with a specialist. All of these measure are taken in an effort to provide you with optimal care, which includes your followup. Under all circumstances we always encourage you to contact your private physician who remains a resource for coordinating your care. When calling for followup care, please make the office aware that this follow-up is from your recent emergency room visit. If for any reason you are refused follow-up, please contact the [facility] emergency department at and asked to speak to the emergency department charge nurse. Follow-up [place] [facility] as discussed continue current meds return as needed as discussed
== END 2017-09-27 20:15 | disposition home or self-care (01) ==
LOC: MW.ED 17:56
DX: Z04.6 Encounter for general psychiatric examination, requested by authority (principal); F17.210 Nicotine dependence, cigarettes, uncomplicated; Z88.5 Allergy status to narcotic agent; Z88.8 Allergy status to other drugs, medicaments and biological substances; Z79.899 Other long term (current) drug therapy
CPT/HCPCS: 99283

== ENCOUNTER 2017-09-30 11:27 | Emergency (ER) | payer SELFPAY ==
[2017-09-30 11:47] VITALS: BP 153/64
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
== END 2017-09-30 12:00 | disposition home or self-care (01) ==
LOC: MW.ED 11:27
DX: M54.5 Low back pain (principal); G89.29 Other chronic pain; F31.9 Bipolar disorder, unspecified; Z76.5 Malingerer [conscious simulation]; F17.210 Nicotine dependence, cigarettes, uncomplicated; Z79.899 Other long term (current) drug therapy; Z88.8 Allergy status to other drugs, medicaments and biological substances
CPT/HCPCS: 99284

== ENCOUNTER 2017-10-02 11:33 | Emergency (ER) | payer SELFPAY ==
[2017-10-02] MEDS ORDERED: OLANZapine 10 MG in Water For Injection, Sterile 2.1 ML IM ONE (12:01)
[2017-10-02] MEDS ORDERED: Ketorolac 60 MG/2 ML SDV IM ONE (12:01)
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
[2017-10-02 12:38] LABS: CHLORIDE,CL 107 mmol/L (98-110); SODIUM,NA 139 mmol/L (136-146)
[2017-10-02 14:11] VITALS: BP 102/58
== END 2017-10-02 13:55 | disposition other institution (70) ==
LOC: MW.ED 11:33
DX: F31.9 Bipolar disorder, unspecified (principal); M54.9 Dorsalgia, unspecified; G89.29 Other chronic pain; F17.210 Nicotine dependence, cigarettes, uncomplicated; Z79.899 Other long term (current) drug therapy; Z88.8 Allergy status to other drugs, medicaments and biological substances
CPT/HCPCS: 36415; 80053; 80305; 81001; 84443; 85025; 93005; 96372; 99285; G0480; J1885

== ENCOUNTER 2017-10-25 05:02 | Emergency (ER) | payer SELFPAY ==
[2017-10-25] MEDS ORDERED: Aspirin 81 MG Tab.Chew PO ONE (05:24)
[2017-10-25] MEDS ORDERED: Sodium Chloride 0.9% 1,000 ML IV ONE (05:24)
--- NOTE | 2017-10-25 05:25 | EDM.PDOC ---
ED HPI GENERAL MEDICAL PROBLEM - General Chief Complaint: Chest Pain Stated Complaint: COUGH, TIGHT CHEST Time Seen by Provider: 10/25/17 05:25 Source of Information: Reports: Patient - History of Present Illness INITIAL COMMENTS - FREE TEXT/NARRATIVE: HISTORY AND PHYSICAL: History of present illness: []Patient presents with right-sided chest pain over the last few days, he denies injury or trauma, he is had recent stay at [facility] in mind for one week for psychiatric care. Patient is currently living in his vehicle he is in no distress he complains of right-sided chest pain no radiation arm neck or jaw associated with shortness of breath diaphoresis or exertion As injury or trauma no fever nausea vomiting chills sweats no headache dizziness palpitation no bowel or urine symptoms Review of systems: As per history of present illness and below otherwise all systems reviewed and negative. Past medical history: As per history of present illness and as reviewed below otherwise noncontributory. Surgical history: As per history of present illness and as reviewed below otherwise noncontributory. Social history: No reported history of drug or alcohol abuse. Family history: As per history of present illness and as reviewed below otherwise noncontributory. Physical exam: HEENT: Atraumatic, normocephalic, pupils reactive, negative for conjunctival pallor or scleral icterus, mucous membranes moist, throat clear, neck supple, nontender, trachea midline. Lungs: Clear to auscultation, breath sounds equal bilaterally, chest nontender on the left can reproduce pain with palpation along right sternal border Heart: S1S2, regular, negative for clicks, rubs, or JVD. Abdomen: Soft, nondistended, nontender. Negative for masses or hepatosplenomegaly. Negative for costovertebral tenderness. Pelvis: Stable nontender. Genitourinary: Deferred. Rectal: Deferred. Extremities: Atraumatic, negative for cords or calf pain. Neurovascular unremarkable. Neuro: Awake, alert, oriented. Cranial nerves II through XII unremarkable. Cerebellum unremarkable. Motor and sensory unremarkable throughout. Exam nonfocal. Diagnostics: [Lab as below EKG Chest 1 view ] Therapeutics: []1 L normal saline bolus Aspirin 324 mg chewable Ibuprofen 400 mg 3 times daily 7-10 days Impression: []Reproducible chest wall pain Bradycardia rate resolved( 42-77 )at current rate is 77 Definitive disposition and diagnosis as appropriate pending reevaluation and review of above. Right Upper Chest Pain Score (Numeric/FACES): 8 - Related Data Allergies Allergy/AdvReac Type Severity Reaction Status Date / Time diazepam [From Valium] Allergy Lightheaded Verified 10/25/17 05:13 ness haloperidol [From Haldol] Allergy Dizziness Verified 10/25/17 05:13 haloperidol lactate Allergy Dizziness Verified 10/25/17 05:13 [From Haldol] lithium Allergy Abdominal Verified 10/25/17 05:13 Cramps quetiapine fumarate Allergy catonic Verified 10/25/17 05:13 [From Seroquel] Home Meds: Home Meds [place] Carbonate 300 mg PO DAILY 04/22/16 [History] Calcium Carbonate [Calcium] 500 mg PO DAILY 10/25/17 [History] Fish Oil/[place]-3 Fatty Acids [Fish Oil] 1 each PO DAILY 10/25/17 [History] Past Medical History - Past Health History Medical/Surgical History: Denies Medical/Surgical History HEENT History: Reports: None Cardiovascular History: Reports: None Respiratory History: Reports: None Gastrointestinal History: Reports: None Genitourinary History: Reports: None Musculoskeletal History: Reports: Back Pain, Chronic Neurological History: Reports: None Psychiatric History: Reports: Bipolar Endocrine/Metabolic History: Reports: None Hematologic History: Reports: None Immunologic History: Reports: None Oncologic (Cancer) History: Reports: None Dermatologic History: Reports: None - Infectious Disease History Infectious Disease History: Reports: None - Past Surgical History Head Surgeries/Procedures: Reports: None HEENT Surgical History: Reports: None Cardiovascular Surgical History: Reports: None Respiratory Surgical History: Reports: None GI Surgical History: Reports: None Male Surgical History: Reports: None Endocrine Surgical History: Reports: None Neurological Surgical History: Reports: None Oncologic Surgical History: Reports: None Social & Family History - Family History Family Medical History: Noncontributory - Tobacco Use Smoking Status *Q: Current Every Day Smoker Years of Tobacco use: 15 Packs/Tins Daily: 0.3 Used Tobacco, but Quit: No Second Hand Smoke Exposure: No - Caffeine Use Caffeine Use: Reports: Coffee, Soda Caffeine Use Comment: 20 drinks/day - Recreational Drug Use Recreational Drug Use: No ED ROS GENERAL - Review of Systems Review Of Systems: ROS reveals no pertinent complaints other than HPI. ED EXAM, GENERAL - Physical Exam Exam: See Below Course - Vital Signs Last Recorded V/S: Last Vital Signs Temp 98.1 F 10/25/17 06:36 Pulse 71 10/25/17 06:36 Resp 18 10/25/17 06:36 BP 129/74 10/25/17 06:36 Pulse Ox 96 10/25/17 06:36 - Orders/Labs/Meds Orders: Active Orders 24 hr Category Date Time Status EKG Documentation Completion [RC] STAT Care 10/25/17 05:24 Active Chest 1V Frontal [CR] Stat Exams 10/25/17 05:24 Taken Labs: Laboratory Tests 10/25/17 10/25/17 10/25/17 Range/Units 04:20 04:30 05:35 WBC 6.66 (4.0-11.0) K/uL RBC 4.44 L (4.50-5.90) M/uL Hgb 13.1 (13.0-17.0) g/dL Hct 39.3 (38.0-50.0) % MCV 88.5 (80.0-98.0) fL MCH 29.5 (27.0-32.0) pg MCHC 33.3 (31.0-37.0) g/dL RDW Std Deviation 48.7 (28.0-62.0) fl RDW Coeff of Jose 15 (11.0-15.0) % Plt Count 231 (150-400) K/uL MPV 10.00 (7.40-12.00) fL Neut % (Auto) 47.1 L (48.0-80.0) % Lymph % (Auto) 43.5 H (16.0-40.0) % [place] % (Auto) 7.4 (0.0-15.0) % Eos % (Auto) 1.5 (0.0-7.0) % Baso % (Auto) 0.5 (0.0-1.5) % Neut # (Auto) 3.1 (1.4-5.7) K/uL Lymph # (Auto) 2.9 H (0.6-2.4) K/uL [place] # (Auto) 0.5 (0.0-0.8) K/uL Eos # (Auto) 0.1 (0.0-0.7) K/uL Baso # (Auto) 0.0 (0.0-0.1) K/uL Nucleated RBC % 0.0 /100WBC Nucleated RBCs # 0 K/uL Sodium 139 (136-146) mmol/L Potassium 3.9 (3.5-5.1) mmol/L Chloride 106 (98-110) mmol/L Carbon Dioxide 25 (21-31) mmol/L BUN 11 (6.0-23.0) mg/dL Creatinine 0.7 (0.6-1.5) mg/dL Est Cr Clr Drug Dosing 124.44 mL/min Estimated GFR (MDRD) > 60.0 ml/min Glucose 97 (60-110) mg/dL Calcium 9.2 (8.8-10.8) mg/dL Total Bilirubin 0.4 (0.1-1.5) mg/dL AST 29 (5-40) IU/L ALT 57 H (8-54) IU/L Alkaline Phosphatase 72 (40-150) Troponin I < 0.10 (0.0-0.29) NG/ML Total Protein 7.3 (6.0-8.0) g/dL Albumin 4.2 (3.5-5.0) g/dL Globulin 3.1 (2.0-3.5) g/dL Albumin/Globulin Ratio 1.4 (1.3-2.8) Urine Color YELLOW Urine Appearance CLEAR Urine pH 6.0 (5.0-8.0) Ur Specific [place] 1.020 (1.001-1.035) Urine Protein NEGATIVE (NEGATIVE) mg/dL Urine Glucose (UA) NEGATIVE (NEGATIVE) mg/dL Urine Ketones NEGATIVE (NEGATIVE) mg/dL Urine Occult Blood NEGATIVE (NEGATIVE) Urine Nitrite NEGATIVE (NEGATIVE) Urine Bilirubin NEGATIVE (NEGATIVE) Urine Urobilinogen 0.2 (<2.0) EU/dL Ur Leukocyte Esterase NEGATIVE (NEGATIVE) Urine RBC NONE SEEN (0-2/HPF) Urine WBC NONE SEEN (0-5/HPF) Ur Epithelial Cells NOT SEEN (NONE-FEW) Urine Bacteria RARE (NEGATIVE) Meds: Medications Discontinued Medications Generic Name Dose Route Start Last Admin Trade Name Freq PRN Reason Stop Dose Admin Aspirin 324 mg 10/25/17 05:24 10/25/17 05:31 Aspirin PO 10/25/17 05:25 324 mg ONETIME ONE Administration Sodium Chloride 1,000 mls @ 999 mls/hr 10/25/17 05:24 12 05:31 Normal Saline IV 10/25/17 06:24 999 mls/hr STAT ONE Administration Departure - Departure Time of Disposition: 06:45 Disposition: Home, Self-Care 01 Condition: Good Clinical Impression: Chest wall pain - Discharge Information Referrals: PCP,None [Primary Care Provider] - Forms: ED Department Discharge Additional Instructions: Ibuprofen 400 mg 3 times daily 7-10 days Return if symptoms persist or worsen Follow-up with primary care in [address] [facility] [address] [place] [id number] The following information is given to patients seen in the emergency department who are being discharged to home. This information is to outline your options for follow-up care. We provide all patients seen in our emergency department with a follow-up referral. The need for follow-up, as well as the timing and circumstances, are variable depending upon the specifics of your emergency department visit. If you don't have a primary care physician on staff, we will provide you with a referral. We always advise you to contact your personal physician following an emergency department visit to inform them of the circumstance of the visit and for follow-up with them and/or the need for any referrals to a consulting specialist. The emergency department will also refer you to a specialist when appropriate. This referral assures that you have the opportunity for follow-up care with a specialist. All of these measure are taken in an effort to provide you with optimal care, which includes your follow-up. Under all circumstances we always encourage you to contact your private physician who remains a resource for coordinating your care. When calling for follow-up care, please make the office aware that this follow-up is from your recent emergency room visit. If for any reason you are refused follow-up, please contact the [facility] emergency department at and asked to speak to the emergency department charge nurse. - My Orders Last 24 Hours: My Active Orders 10/25/17 05:24 EKG Documentation Completion [RC] STAT Chest 1V Frontal [CR] Stat - Assessment/Plan Last 24 Hours: My Active Orders 10/25/17 05:24 EKG Documentation Completion [RC] STAT Chest 1V Frontal [CR] Stat
[2017-10-25 05:51] LABS: CHLORIDE,CL 106 mmol/L (98-110); SODIUM,NA 139 mmol/L (136-146)
[2017-10-25 06:37] VITALS: BP 129/74
--- NOTE | 2017-10-26 15:37 | CR ---
EXAM DATE: 10/25/17 PATIENT'S AGE: 42 Patient: CHEMA LANDEROS Facility: [place], [place] Site . Site : [id number] Study: XRay Chest [id number]/[id number] 6:05:23 AM Ordering Physician: Maryann Schneider Final Report: INDICATION: Chest pain. TECHNIQUE: Chest radiograph 1 view COMPARISON: None FINDINGS: Cardiovascular and mediastinum: The heart silhouette is normal in size and morphology. The mediastinum is normal in appearance. Lungs and pleural spaces: Both lungs are unremarkable in appearance. No sign of pleural effusion seen. No pneumothorax is identified. Bones and soft tissues: No significant findings. IMPRESSION: 1. No acute cardiopulmonary disease is seen. Dictated by Rubén Manzo MD @ 10/25/2017 6:14:24 AM Dictated by: Rubén Manzo MD @ 10/25/2017 06:14:29 (Electronic Signature) Report Signed by Proxy. JOHN R. OISHEI CHILDREN'S HOSPITALAshok
== END 2017-10-25 07:21 | disposition home or self-care (01) ==
LOC: MW.ED 05:02
DX: R07.89 Other chest pain (principal); F17.210 Nicotine dependence, cigarettes, uncomplicated; Z88.5 Allergy status to narcotic agent; Z88.8 Allergy status to other drugs, medicaments and biological substances; Z79.899 Other long term (current) drug therapy
CPT/HCPCS: 71010; 80053; 81001; 84484; 85025; 87804; 93005; 99285; A9270; J7040; 99284

== ENCOUNTER 2018-03-08 13:39 | Emergency (ER) | payer SELFPAY ==
[2018-03-08 13:50] VITALS: BP 92/53
[2018-03-08] MEDS ORDERED: Ketorolac 60 MG/2 ML SDV IM ONE (13:55)
--- NOTE | 2018-03-08 14:13 | EDM.PDOC ---
ED HPI GENERAL MEDICAL PROBLEM - General Chief Complaint: Back Pain or Injury Stated Complaint: LOWER BACK PAIN Time Seen by Provider: 03/08/18 13:55 Source of Information: Reports: Patient History Limitations: Reports: No Limitations - History of Present Illness INITIAL COMMENTS - FREE TEXT/NARRATIVE: HISTORY AND PHYSICAL: History of present illness: Patient is a 42-year-old male who presents to the emergency room with complaints of chronic back pain. He is well-known to our emergency room and has been seen multiple times for this complaint. He is here today requesting IM Toradol as he states this medication has worked well for him in the past. He denies any new injury, trauma or symptoms. He states he recently started working again and is doing a lot of physical labor. The pain is localized and does not have any sciatic component. He denies any numbness or tingling to his distal extremities. Review of systems: As per history of present illness and below otherwise all systems reviewed and negative. Past medical history: As per history of present illness and as reviewed below otherwise noncontributory. Surgical history: As per history of present illness and as reviewed below otherwise noncontributory. Social history: No reported history of drug or alcohol abuse. Family history: As per history of present illness and as reviewed below otherwise noncontributory. Physical exam: General: Well-developed and well-nourished 42-year-old male. Alert and oriented. Nontoxic appearing and in no acute distress. HEENT: Atraumatic, normocephalic, pupils equal and reactive bilaterally, negative for conjunctival pallor or scleral icterus, mucous membranes moist, throat clear, neck supple, nontender, trachea midline. No drooling or trismus noted. No meningeal signs Lungs: Clear to auscultation, breath sounds equal bilaterally, chest nontender. Heart: S1S2, regular rate and rhythm without overt murmur Abdomen: Soft, nondistended, nontender. Negative for masses or hepatosplenomegaly. Negative for costovertebral tenderness. Pelvis: Stable nontender. Genitourinary: Deferred. Rectal: Deferred. Skin: Intact, warm, dry. No lesions or rashes noted. C-spine/Back: No pinpoint vertebral tenderness upon palpation. Patient is fully ambulatory without any difficulty. Extremities: Atraumatic, negative for cords or calf pain. Neurovascular unremarkable. Neuro: Awake, alert, oriented. Cranial nerves II through XII unremarkable. Cerebellum unremarkable. Motor and sensory unremarkable throughout. Exam nonfocal. Notes: Patient has questions about doing a lithium lab draw. He states his psychiatric care provider Dr. Mason in [place] would like his lithium level drawn and sent to him. I did have her nursing staff check if there was an order sent from him in our facility. He does have an outpatient order for lithium lab draw. After discharge we will watch him to the outpatient lab for this order. Encouraged him to follow-up with primary care provide. Diagnostics: [] Therapeutics: IM Toradol Impression: Chronic back pain Plan: 1. Please continue to take Tylenol and ibuprofen as needed for pain management. 2. Consider using a lumbar back brace for support. 3. The outpatient lab is available for your lithium lab draw. 4. Please follow-up with your primary care provider in the next 1-2 days. Return to the ED as needed and as discussed. Definitive disposition and diagnosis as appropriate pending reevaluation and review of above. Lumbar Pain Score (Numeric/FACES): 10 - Related Data Allergies Allergy/AdvReac Type Severity Reaction Status Date / Time diazepam [From Valium] Allergy Lightheaded Verified 03/08/18 13:50 ness haloperidol [From Haldol] Allergy Dizziness Verified 03/08/18 13:50 haloperidol lactate Allergy Dizziness Verified 03/08/18 13:50 [From Haldol] lithium Allergy Abdominal Verified 03/08/18 13:50 Cramps quetiapine fumarate Allergy catonic Verified 03/08/18 13:50 [From Seroquel] Home Meds: Home Meds [place] Carbonate 300 mg PO DAILY 04/22/16 [History] Calcium Carbonate [Calcium] 500 mg PO DAILY 10/25/17 [History] Fish Oil/[place]-3 Fatty Acids [Fish Oil] 1 each PO DAILY 10/25/17 [History] Past Medical History - Past Health History Medical/Surgical History: Denies Medical/Surgical History HEENT History: Reports: None Cardiovascular History: Reports: None Respiratory History: Reports: None Gastrointestinal History: Reports: None Genitourinary History: Reports: None Musculoskeletal History: Reports: Back Pain, Chronic Neurological History: Reports: None Psychiatric History: Reports: Bipolar Endocrine/Metabolic History: Reports: None Hematologic History: Reports: None Immunologic History: Reports: None Oncologic (Cancer) History: Reports: None Dermatologic History: Reports: None - Infectious Disease History Infectious Disease History: Reports: None - Past Surgical History Head Surgeries/Procedures: Reports: None HEENT Surgical History: Reports: None Cardiovascular Surgical History: Reports: None Respiratory Surgical History: Reports: None GI Surgical History: Reports: None Male Surgical History: Reports: None Endocrine Surgical History: Reports: None Neurological Surgical History: Reports: None Oncologic Surgical History: Reports: None Social & Family History - Family History Family Medical History: Noncontributory - Tobacco Use Smoking Status *Q: Current Every Day Smoker Years of Tobacco use: 15 Packs/Tins Daily: 0.5 Used Tobacco, but Quit: No Second Hand Smoke Exposure: No - Caffeine Use Caffeine Use: Reports: Coffee Caffeine Use Comment: 20 drinks/day - Recreational Drug Use Recreational Drug Use: No ED ROS GENERAL - Review of Systems Review Of Systems: ROS reveals no pertinent complaints other than HPI. ED EXAM,LOWER BACK PAIN/INJURY - Physical Exam Exam: See Below (See dictation) Course - Vital Signs Last Recorded V/S: Last Vital Signs Temp 98.5 F 03/08/18 13:47 Pulse 66 03/08/18 13:47 Resp 20 03/08/18 13:47 BP 92/53 L 03/08/18 13:47 Pulse Ox 98 03/08/18 13:47 - Orders/Labs/Meds Meds: Medications Discontinued Medications Generic Name Dose Route Start Last Admin Trade Name Jelani PRN Reason Stop Dose Admin Ketorolac Tromethamine 60 mg 03/08/18 13:55 03/08/18 14:09 Toradol IM 03/08/18 13:56 60 mg ONETIME ONE Administration Departure - Departure Time of Disposition: 14:21 Disposition: Home, Self-Care 01 Clinical Impression: Chronic back pain Qualifiers: Back pain location: low back pain Back pain laterality: unspecified Sciatica presence: without sciatica Qualified Code(s): M54.5 - Low back pain - Discharge Information Referrals: PCP,None [Primary Care Provider] - Forms: ED Department Discharge Additional Instructions: The following information is given to patients seen in the emergency department who are being discharged to home. This information is to outline your options for follow-up care. We provide all patients seen in our emergency department with a follow-up referral. The need for follow-up, as well as the timing and circumstances, are variable depending upon the specifics of your emergency department visit. If you don't have a primary care physician on staff, we will provide you with a referral. We always advise you to contact your personal physician following an emergency department visit to inform them of the circumstance of the visit and for follow-up with them and/or the need for any referrals to a consulting specialist. The emergency department will also refer you to a specialist when appropriate. This referral assures that you have the opportunity for follow-up care with a specialist. All of these measure are taken in an effort to provide you with optimal care, which includes your follow-up. Under all circumstances we always encourage you to contact your private physician who remains a resource for coordinating your care. When calling for follow-up care, please make the office aware that this follow-up is from your recent emergency room visit. If for any reason you are refused follow-up, please contact the [facility] Emergency Department at and asked to speak to the emergency department charge nurse. [facility] Primary Care [address] [place] [id number] 1. Please continue to take Tylenol and ibuprofen as needed for pain management. 2. Consider using a lumbar back brace for support. 3. The outpatient lab is available for your lithium lab draw. 4. Please follow-up with your primary care provider in the next 1-2 days. Return to the ED as needed and as discussed.
== END 2018-03-08 14:46 | disposition home or self-care (01) ==
LOC: MW.ED 13:39
DX: G89.29 Other chronic pain (principal); M54.5 Low back pain; F17.210 Nicotine dependence, cigarettes, uncomplicated; Z88.5 Allergy status to narcotic agent; Z88.8 Allergy status to other drugs, medicaments and biological substances; Z79.899 Other long term (current) drug therapy
CPT/HCPCS: 96372; 99283; J1885

== ENCOUNTER 2018-08-20 14:05 | Emergency (ER) | payer SELFPAY ==
[2018-08-20 14:24] VITALS: BP 130/75
--- NOTE | 2018-08-20 15:46 | EDM.PDOC ---
ED HPI GENERAL MEDICAL PROBLEM - General Chief Complaint: Skin Complaint Stated Complaint: BUG BITE Time Seen by Provider: 08/20/18 15:46 Source of Information: Reports: Patient History Limitations: Reports: No Limitations - History of Present Illness INITIAL COMMENTS - FREE TEXT/NARRATIVE: HISTORY AND PHYSICAL: History of present illness: Patient is a 43-year-old male here with complaint of a painful rash on the right side of his back and underneath his armpit. He states it started feeling painful about 1 week ago but there was no rash until approximately a 4 days ago. He states he's been feeling tired but denies any fevers, chills, nausea, vomiting, diarrhea, shortness of breath, chest pain, headache. Denies any recent illness or stressors. Review of systems: As per history of present illness and below otherwise all systems reviewed and negative. Past medical history: As per history of present illness and as reviewed below otherwise noncontributory. Surgical history: As per history of present illness and as reviewed below otherwise noncontributory. Social history: No reported history of drug or alcohol abuse. Family history: As per history of present illness and as reviewed below otherwise noncontributory. Physical exam: General: Patient sitting comfortably in no acute distress and nontoxic appearing HEENT: Atraumatic, normocephalic, pupils reactive, negative for conjunctival pallor or scleral icterus, mucous membranes moist, throat clear, neck supple, nontender, trachea midline. No meningeal signs. Lungs: Clear to auscultation, breath sounds equal bilaterally, chest nontender. Heart: S1S2, regular, negative for clicks, rubs, or overt murmur. Abdomen: Soft, nondistended, nontender. Negative for masses or hepatosplenomegaly. Negative for costovertebral tenderness. Pelvis: Stable nontender. Genitourinary: Deferred. Rectal: Deferred. Skin: there is an area of the grouped vesicles on the back and flank in the area of the T3-T4 distribution, does not cross midline. No signs surrounding erythema, purulence or warmth or other signs of secondary bacterial infection. Extremities: Atraumatic, negative for cords or calf pain. Neurovascular unremarkable. Neuro: Awake, alert, oriented. Cranial nerves II through XII unremarkable. Cerebellum unremarkable. Motor and sensory unremarkable throughout. Exam nonfocal. Notes: Patient was offered HIV testing as he is from [place] and has developed shingles at a fairly young age. Also discussed with patient the antivirals are most effective within the first few days of symptom onset. Patient would like to proceed with antivirals. Diagnostics: HIV Therapeutics: None Prescriptions: Valtrex 1000mg TID x 7 days Impression: Herpes zoster Plan: 1. Take antivirals as instructed. Motrin or Tylenol as needed for pain. Someone will contact you within the next week if your HIV is positive. 2. Follow up with your primary care provider. 3. Return to ED as needed as discussed Definitive disposition and diagnosis as appropriate pending reevaluation and review of above. Upper Back Pain Score (Numeric/FACES): 10 - Related Data Allergies Allergy/AdvReac Type Severity Reaction Status Date / Time diazepam [From Valium] Allergy Lightheaded Verified 08/20/18 14:25 ness haloperidol [From Haldol] Allergy Dizziness Verified 08/20/18 14:25 haloperidol lactate Allergy Dizziness Verified 08/20/18 14:25 [From Haldol] quetiapine fumarate Allergy catonic Verified 08/20/18 14:25 [From Seroquel] Home Meds: Home Meds [place] Carbonate 300 mg PO DAILY 04/22/16 [History] valACYclovir [Valtrex] 1,000 mg PO TID 7 Days #21 tab 08/20/18 [Rx] Past Medical History - Past Health History Medical/Surgical History: Denies Medical/Surgical History HEENT History: Reports: None Cardiovascular History: Reports: None Respiratory History: Reports: None Gastrointestinal History: Reports: None Genitourinary History: Reports: None Musculoskeletal History: Reports: Back Pain, Chronic Neurological History: Reports: None Psychiatric History: Reports: Bipolar Endocrine/Metabolic History: Reports: None Hematologic History: Reports: None Immunologic History: Reports: None Oncologic (Cancer) History: Reports: None Dermatologic History: Reports: None - Infectious Disease History Infectious Disease History: Reports: None - Past Surgical History Head Surgeries/Procedures: Reports: None HEENT Surgical History: Reports: None Cardiovascular Surgical History: Reports: None Respiratory Surgical History: Reports: None GI Surgical History: Reports: None Male Surgical History: Reports: None Endocrine Surgical History: Reports: None Neurological Surgical History: Reports: None Oncologic Surgical History: Reports: None Social & Family History - Family History Family Medical History: Noncontributory - Tobacco Use Smoking Status *Q: Current Every Day Smoker Years of Tobacco use: 10 Packs/Tins Daily: 0.5 - Caffeine Use Caffeine Use: Reports: Coffee, Tea Caffeine Use Comment: 20 drinks/day - Recreational Drug Use Recreational Drug Use: No ED ROS GENERAL - Review of Systems Review Of Systems: ROS reveals no pertinent complaints other than HPI. ED EXAM, SKIN/RASH Exam: See Below (see dictation) Course - Vital Signs Last Recorded V/S: Last Vital Signs Temp 36.9 C 08/20/18 14:21 Pulse 61 08/20/18 14:21 Resp 16 08/20/18 14:21 BP 130/75 08/20/18 14:21 Pulse Ox 96 08/20/18 14:21 - Orders/Labs/Meds Orders: Active Orders 24 hr Category Date Time Status HIV12 AG/AB 4TH GEN W/REFLEX [CHEM] Stat Lab 08/20/18 15:46 Ordered Departure - Departure Time of Disposition: 15:53 Disposition: Home, Self-Care 01 Condition: Good Clinical Impression: Herpes zoster - Discharge Information Prescriptions: valACYclovir [Valtrex] 1,000 mg PO TID 7 Days #21 tab Referrals: PCP,None [Primary Care Provider] - Forms: ED Department Discharge Additional Instructions: The following information is given to patients seen in the emergency department who are being discharged to home. This information is to outline your options for follow-up care. We provide all patients seen in our emergency department with a follow-up referral. The need for follow-up, as well as the timing and circumstances, are variable depending upon the specifics of your emergency department visit. If you don't have a primary care physician on staff, we will provide you with a referral. We always advise you to contact your personal physician following an emergency department visit to inform them of the circumstance of the visit and for follow-up with them and/or the need for any referrals to a consulting specialist. The emergency department will also refer you to a specialist when appropriate. This referral assures that you have the opportunity for follow-up care with a specialist. All of these measure are taken in an effort to provide you with optimal care, which includes your follow-up. Under all circumstances we always encourage you to contact your private physician who remains a resource for coordinating your care. When calling for follow-up care, please make the office aware that this follow-up is from your recent emergency room visit. If for any reason you are refused follow-up, please contact the [facility] Emergency Department at and asked to speak to the emergency department charge nurse. [facility] Primary Care [address] [place] [address] [id number] [address] [id number] 1. Take antivirals as instructed. Motrin or Tylenol as needed for pain. Someone will contact you within the next week if your HIV is positive. 2. Follow up with your primary care provider. 3. Return to ED as needed as discussed - My Orders Last 24 Hours: My Active Orders 08/20/18 15:46 HIV12 AG/AB 4TH GEN W/REFLEX [CHEM] Stat - Assessment/Plan Last 24 Hours: My Active Orders 08/20/18 15:46 HIV12 AG/AB 4TH GEN W/REFLEX [CHEM] Stat
== END 2018-08-20 16:05 | disposition home or self-care (01) ==
LOC: MW.ED 14:05
DX: B02.9 Zoster without complications (principal); F17.210 Nicotine dependence, cigarettes, uncomplicated; Z88.8 Allergy status to other drugs, medicaments and biological substances
CPT/HCPCS: 36415; 87389; 99283

== ENCOUNTER 2019-03-19 15:51 | Emergency (ER) | payer SELFPAY ==
--- NOTE | 2019-03-19 16:02 | EDM.PDOC ---
ED HPI GENERAL MEDICAL PROBLEM - General Chief Complaint: Back Pain or Injury Stated Complaint: BACK PAIN Time Seen by Provider: 03/19/19 16:00 Source of Information: Reports: Patient History Limitations: Reports: No Limitations - History of Present Illness INITIAL COMMENTS - FREE TEXT/NARRATIVE: HISTORY AND PHYSICAL: History of present illness: Patient is a 43-year-old male who presents to the emergency room with complaints of low lumbar back pain, right side greater than left, which radiates down his right gluteus. 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 Patient does have chronic back pain which intermittently flares up. He states he has been seen several times previous for this lumbar back pain and tries to perform massage and stretching to avoid taking any medications [id number]/ prescribed. He denies any injury, trauma or falls. He denies any urinary or fecal incontinence. Denies any numbness, tingling or saddle paresthesias. Patient denies any fever, chills, headache, change in vision, syncope or near syncope. Denies any chest pain, shortness of breath or cough. Denies any abdominal pain, nausea, vomiting, diarrhea, constipation or dysuria. Has not noted any blood in urine or stool. Patient has been eating and drinking appropriately. Review of systems: As per history of present illness and below otherwise all systems reviewed and negative. Past medical history: As per history of present illness and as reviewed below otherwise noncontributory. Surgical history: As per history of present illness and as reviewed below otherwise noncontributory. Social history: See social history for further information Family history: As per history of present illness and as reviewed below otherwise noncontributory. Physical exam: General: Well-developed and well-nourished 43-year-old male. Alert and oriented. Nontoxic appearing and in no acute distress. HEENT: Atraumatic, normocephalic, pupils equal and reactive bilaterally, negative for conjunctival pallor or scleral icterus, mucous membranes moist, TMs normal bilaterally, throat clear, neck supple, nontender, trachea midline. No drooling or trismus noted. No meningeal signs. No hot potato voice noted. Lungs: Clear to auscultation, breath sounds equal bilaterally, chest nontender. Heart: S1S2, regular rate and rhythm without overt murmur Abdomen: Soft, nondistended, nontender. Negative for masses or hepatosplenomegaly. Negative for costovertebral tenderness. Pelvis: Stable nontender. Genitourinary: Deferred. Rectal: Deferred. Skin: Intact, warm, dry. No lesions or rashes noted. C-spine/Back: No pinpoint vertebral tenderness upon palpation. No crepitus, step -offs or obvious deformities. Patient is ambulatory into the emergency room without difficulty or deficits. Able to walk on his heels and toes. Denies any urinary or fecal incontinence. Denies any numbness, tingling or saddle paresthesia. Extremities: Atraumatic, moves all extremities per self without difficulty or deficits, negative for cords or calf pain. Neurovascular unremarkable. Neuro: Awake, alert, oriented. Cranial nerves II through XII unremarkable. Cerebellum unremarkable. Motor and sensory unremarkable throughout. Exam nonfocal. Notes: Patient reports that pain is chronic and declines the need for any x-rays at this time. I will give him Toradol and Norflex IM. We discussed the need for establishing care with a primary care provider for further evaluation and management of his chronic pain. Supportive care measures were reviewed and discussed. Voices understanding and is agreeable to plan of care. Denies any further questions or concerns at this time. Diagnostics: None Therapeutics: Toradol IM, Norflex IM Prescription: Flexeril, diclofenac Impression: Acute on chronic lumbar back pain Plan: 1. The medication he received as an injection today does cause drowsiness so do not drive for the remaining day 2. When resting please lay on a flat firm surface. Limit your immobility to prevent muscle stiffness, get up to ambulate/move around/gentle stretching multiple times throughout the day. May alternate heat and ice to the painful area and 3. Tylenol as needed for back pain. Otherwise take the prescribed Flexeril and diclofenac as directed. Diclofenac is an anti-inflammatory so do not take any additional NSAIDs with this medication, such as ibuprofen or Aleve. Flexeril as a muscle relaxant, this medication may cause drowsiness a do not take it will driving her needing to be functioning outside of the house. 4. Please follow-up with your primary care provider as we discussed. 5. Return to the ED as needed and as discussed. Definitive disposition and diagnosis as appropriate pending reevaluation and review of above. - Related Data Allergies Allergy/AdvReac Type Severity Reaction Status Date / Time diazepam [From Valium] Allergy Lightheaded Verified 08/20/18 14:25 ness haloperidol [From Haldol] Allergy Dizziness Verified 08/20/18 14:25 haloperidol lactate Allergy Dizziness Verified 08/20/18 14:25 [From Haldol] quetiapine fumarate Allergy catonic Verified 08/20/18 14:25 [From Seroquel] Home Meds: Home Meds . [No Known Home Meds] 03/19/19 [History] Past Medical History - Past Health History Medical/Surgical History: Denies Medical/Surgical History HEENT History: Reports: None Cardiovascular History: Reports: None Respiratory History: Reports: None Gastrointestinal History: Reports: None Genitourinary History: Reports: None Musculoskeletal History: Reports: Back Pain, Chronic Neurological History: Reports: None Psychiatric History: Reports: Bipolar Endocrine/Metabolic History: Reports: None Hematologic History: Reports: None Immunologic History: Reports: None Oncologic (Cancer) History: Reports: None Dermatologic History: Reports: None - Infectious Disease History Infectious Disease History: Reports: None - Past Surgical History Head Surgeries/Procedures: Reports: None HEENT Surgical History: Reports: None Cardiovascular Surgical History: Reports: None Respiratory Surgical History: Reports: None GI Surgical History: Reports: None Male Surgical History: Reports: None Endocrine Surgical History: Reports: None Neurological Surgical History: Reports: None Oncologic Surgical History: Reports: None Social & Family History - Family History Family Medical History: Noncontributory - Caffeine Use Caffeine Use: Reports: Coffee, Tea Caffeine Use Comment: 20 drinks/day ED ROS GENERAL - Review of Systems Review Of Systems: ROS reveals no pertinent complaints other than HPI. ED EXAM,LOWER BACK PAIN/INJURY - Physical Exam Exam: See Below (See dictation) Course - Vital Signs Last Recorded V/S: Last Vital Signs Temp 96.6 F 03/19/19 16:00 Pulse 60 03/19/19 16:00 Resp 14 03/19/19 16:00 BP 114/55 L 03/19/19 16:00 Pulse Ox 98 03/19/19 16:00 - Orders/Labs/Meds Orders: Active Orders 24 hr Category Date Time Status Ketorolac [Toradol] Med 03/19/19 16:06 Once 60 mg IM ONETIME ONE Orphenadrine [Norflex] Med 03/19/19 16:06 Stat 60 mg IM NOW STA Departure - Departure Time of Disposition: 16:09 Disposition: Home, Self-Care 01 Clinical Impression: Acute exacerbation of chronic low back pain - Discharge Information Instructions: Chronic Back Pain, [id number] Referrals: PCP,None [Primary Care Provider] - Forms: ED Department Discharge Additional Instructions: The following information is given to patients seen in the emergency department who are being discharged to home. This information is to outline your options for follow-up care. We provide all patients seen in our emergency department with a follow-up referral. The need for follow-up, as well as the timing and circumstances, are variable depending upon the specifics of your emergency department visit. If you don't have a primary care physician on staff, we will provide you with a referral. We always advise you to contact your personal physician following an emergency department visit to inform them of the circumstance of the visit and for follow-up with them and/or the need for any referrals to a consulting specialist. The emergency department will also refer you to a specialist when appropriate. This referral assures that you have the opportunity for follow-up care with a specialist. All of these measure are taken in an effort to provide you with optimal care, which includes your follow-up. Under all circumstances we always encourage you to contact your private physician who remains a resource for coordinating your care. When calling for follow-up care, please make the office aware that this follow-up is from your recent emergency room visit. If for any reason you are refused follow-up, please contact the [facility] Emergency Department at and asked to speak to the emergency department charge nurse. [facility] [address] [place] [address] [id number] [address] [id number] 1. The medication he received as an injection today does cause drowsiness so do not drive for the remaining day 2. When resting please lay on a flat firm surface. Limit your immobility to prevent muscle stiffness, get up to ambulate/move around/gentle stretching multiple times throughout the day. May alternate heat and ice to the painful area and 3. Tylenol as needed for back pain. Otherwise take the prescribed Flexeril and diclofenac as directed. Diclofenac is an anti-inflammatory so do not take any additional NSAIDs with this medication, such as ibuprofen or Aleve. Flexeril as a muscle relaxant, this medication may cause drowsiness a do not take it will driving her needing to be functioning outside of the house. 4. Please follow-up with your primary care provider as we discussed. 5. Return to the ED as needed and as discussed. - My Orders Last 24 Hours: My Active Orders 03/19/19 16:06 Ketorolac [Toradol] 60 mg IM ONETIME ONE Orphenadrine [Norflex] 60 mg IM NOW STA - Assessment/Plan Last 24 Hours: My Active Orders 03/19/19 16:06 Ketorolac [Toradol] 60 mg IM ONETIME ONE Orphenadrine [Norflex] 60 mg IM NOW STA
[2019-03-19] MEDS ORDERED: Ketorolac 60 MG/2 ML SDV IM ONE (16:06)
[2019-03-19 16:38] VITALS: BP 102/61
== END 2019-03-19 16:38 | disposition home or self-care (01) ==
LOC: MW.ED 15:51
DX: G89.29 Other chronic pain (principal); M54.5 Low back pain; Z88.8 Allergy status to other drugs, medicaments and biological substances
CPT/HCPCS: 96372; 99283; J1885; J2360

== ENCOUNTER 2020-12-22 09:53 | Emergency (ER) | payer SELFPAY ==
--- NOTE | 2020-12-22 10:23 | EDM.PDOC ---
ED HPI GENERAL MEDICAL PROBLEM - General Chief Complaint: General Stated Complaint: PSYCH MEDICATION REFILL Time Seen by Provider: 12/22/20 09:58 Source of Information: Reports: Patient History Limitations: Reports: No Limitations - History of Present Illness INITIAL COMMENTS - FREE TEXT/NARRATIVE: 45-year-old male significant psychiatric history presents requesting lithium ref ill. He is here from [place] and has been having difficulty getting his medication refilled. Denies suicidal or homicidal ideation, no other complaints. - Related Data Allergies Allergy/AdvReac Type Severity Reaction Status Date / Time diazepam [From Valium] Allergy Lightheaded Verified 08/20/18 14:25 ness haloperidol [From Haldol] Allergy Dizziness Verified 08/20/18 14:25 haloperidol lactate Allergy Dizziness Verified 08/20/18 14:25 [From Haldol] quetiapine fumarate Allergy catonic Verified 08/20/18 14:25 [From Seroquel] Home Meds: Home Meds Cyclobenzaprine [Flexeril] 10 mg PO TID PRN #20 tab 03/19/19 [Rx] Diclofenac Sodium [Voltaren] 75 mg PO BIDMEALS PRN #30 tab.cr 03/19/19 [Rx] Leedey Carbonate 300 mg PO BID 12/22/20 [History] Leedey Carbonate 300 mg PO BID 30 Days #60 tablet 12/22/20 [Rx] Past Medical History - Past Health History Medical/Surgical History: Denies Medical/Surgical History HEENT History: Reports: None Cardiovascular History: Reports: None Respiratory History: Reports: None Gastrointestinal History: Reports: None Genitourinary History: Reports: None Musculoskeletal History: Reports: Back Pain, Chronic Neurological History: Reports: None Psychiatric History: Reports: Bipolar Endocrine/Metabolic History: Reports: None Hematologic History: Reports: None Immunologic History: Reports: None Oncologic (Cancer) History: Reports: None Dermatologic History: Reports: None - Infectious Disease History Infectious Disease History: Reports: None - Past Surgical History Head Surgeries/Procedures: Reports: None HEENT Surgical History: Reports: None Cardiovascular Surgical History: Reports: None Respiratory Surgical History: Reports: None GI Surgical History: Reports: None Male Surgical History: Reports: None Endocrine Surgical History: Reports: None Neurological Surgical History: Reports: None Oncologic Surgical History: Reports: None Social & Family History - Family History Family Medical History: No Pertinent Family History - Caffeine Use Caffeine Use: Reports: Coffee, Tea Caffeine Use Comment: 20 drinks/day ED ROS GENERAL - Review of Systems Review Of Systems: Comprehensive ROS is negative, except as noted in HPI. ED EXAM, GENERAL - Physical Exam Exam: See Below Exam Limited By: No Limitations General Appearance: Alert, WD/WN, No Apparent Distress Throat/Mouth: Normal Voice, No Airway Compromise Head: Atraumatic, Normocephalic Neck: Normal Inspection Respiratory/Chest: No Respiratory Distress, No Accessory Muscle Use Cardiovascular: Normal Peripheral Pulses Extremities: Normal Inspection Neurological: Alert Psychiatric: Normal Affect, Normal Mood Skin Exam: Warm, Dry, Intact, Normal Color Course - Vital Signs Last Recorded V/S: Last Vital Signs Temp 97.3 F 12/22/20 10:20 Pulse 71 12/22/20 10:20 Resp 16 12/22/20 10:20 BP 100/66 12/22/20 10:20 Pulse Ox 98 12/22/20 10:20 - Re-Assessments/Exams Free Text/Narrative Re-Assessment/Exam: 12/22/20 10:22 We will provide short course the patient psychiatric meds although I explained to patient that it is very important for him to follow-up with a psychiatrist or primary provider for long-term management of these meds as they do have significant side effects and need routine lab monitoring. Departure - Departure Time of Disposition: 10:24 Disposition: Home, Self-Care 01 Condition: Good Clinical Impression: Medication refill - Discharge Information Prescriptions: Leedey Carbonate 300 mg PO BID 30 Days #60 tablet Instructions: Medicine Refill at the Emergency Department Referrals: PCP,None [Primary Care Provider] - Forms: ED Department Discharge Additional Instructions: I have sent a 1 month supply of lithium to your pharmacy. It is very important that you follow-up with a primary care physician or psychiatrist for long-term management of this medication as it has a lot of side effects and needs routine lab monitoring. The following information is given to patients seen in the emergency department who are being discharged to home. This information is to outline your options for follow-up care. We provide all patients seen in our emergency department with a follow-up referral. The need for follow-up, as well as the timing and circumstances, are variable depending upon the specifics of your emergency department visit. If you don't have a primary care physician on staff, we will provide you with a referral. We always advise you to contact your personal physician following an emergency department visit to inform them of the circumstance of the visit and for follow-up with them and/or the need for any referrals to a consulting specialist. The emergency department will also refer you to a specialist when appropriate. This referral assures that you have the opportunity for follow-up care with a specialist. All of these measure are taken in an effort to provide you with optimal care, which includes your follow-up. Under all circumstances we always encourage you to contact your private physician who remains a resource for coordinating your care. When calling for follow-up care, please make the office aware that this follow-up is from your recent emergency room visit. If for any reason you are refused follow-up, please contact the [facility] Emergency Department at and asked to speak to the emergency department charge nurse. Please follow up with your primary care physician. If you do not have a primary care physician, see below: [facility] [address] [place] [id number] [facility] [address] [place] [address] [facility] [address] [place] [id number] Sepsis Event Note (ED) - Evaluation Sepsis Screening Result: No Definite Risk - Focused Exam Vital Signs: Vital Signs Temp Pulse Resp BP Pulse Ox 12/22/20 10:20 97.3 F 71 16 100/66 98
[2020-12-22 10:38] VITALS: BP 99/63; PULSE 60
== END 2020-12-22 10:38 | disposition home or self-care (01) ==
LOC: MW.ED 09:53
DX: Z76.0 Encounter for issue of repeat prescription (principal); Z88.8 Allergy status to other drugs, medicaments and biological substances; Z88.5 Allergy status to narcotic agent
CPT/HCPCS: 99281

== ENCOUNTER 2021-01-27 14:10 | Emergency (ER) | payer SELFPAY ==
--- NOTE | 2021-01-27 14:59 | EDM.PDOC ---
ED HPI GENERAL MEDICAL PROBLEM - General Chief Complaint: Genitourinary Problem Stated Complaint: kidney issues Time Seen by Provider: 01/27/21 14:40 Source of Information: Reports: Patient History Limitations: Reports: No Limitations - History of Present Illness INITIAL COMMENTS - FREE TEXT/NARRATIVE: HISTORY AND PHYSICAL: History of present illness: Patient is a 54-year-old male who presents to the emergency room with concerns of a kidney infection. He states he has chronic lumbar back pain but feels that the pain he is experiencing may be kidney pain. He does take lithium 300 mg twice daily for bipolar disease. He states he recently traveled to [facility] then to [place] which caused him to lose his privileges at [facility]. He does plan on returning to [facility] for his health care and medication needs although he states there is "a lot of paperwork to fill out". He is requesting that his lithium levels be checked as he has not had this done in "a while... and maybe my kidneys hurt because of my lithium". Patient denies any fever, chills, headache, change in vision, syncope or near syncope. Denies any chest pain, shortness of breath or cough. Denies any abdominal pain, nausea, vomiting, diarrhea, constipation or dysuria. Has not noted any blood in urine or stool. Patient has been eating and drinking appropriately. Review of systems: As per history of present illness and below otherwise all systems reviewed and negative. Past medical history: As per history of present illness and as reviewed below otherwise noncontr ibutory. Surgical history: As per history of present illness and as reviewed below otherwise noncontributory. Social history: See social history for further information Family history: As per history of present illness and as reviewed below otherwise noncontributory. Physical exam: General: Well developed and well nourished. Alert and orientated x 3. Answering questions appropriately. Speech is clear and appropriate. Nontoxic in appearance and in no acute distress. Vital signs are stable and have been reviewed by me. Nursing notes were reviewed. HEENT: Atraumatic, normocephalic, pupils equal and reactive bilaterally, negative for conjunctival pallor or scleral icterus, mucous membranes moist, throat clear, neck supple, nontender, trachea midline. No drooling or trismus noted. No meningeal signs. No hot potato voice noted. Lungs: Clear to auscultation bilaterally. No wheezes, rales, or rhonchi. Chest nontender. Normal work of breathing, no accessory muscles used. Heart: S1S2, regular rate and rhythm without overt murmur, gallops, or rubs. No JVD. No peripheral edema Abdomen: Soft, nondistended, nontender. Normoactive bowel sounds. Negative for masses or costovertebral tenderness. Skin: Intact, warm, dry. No lesions or rashes noted. Hematologic: No petechiae or purpra. Mucosa appropriate color and normal nail bed color and refill. Extremities: Atraumatic, moves all extremities per self without difficulty or deficits, negative for cords or calf pain. Neurovascular unremarkable. Neuro: Awake, alert, oriented. Cranial nerves II through XII unremarkable. Cerebellum unremarkable. Motor and sensory unremarkable throughout. Exam nonfocal. Psychiatric: Mood and affect are appropriate. Normal thought process. Answering questions appropriately. Notes: *This patient was seen and evaluated during the 2019 SARS-CoV-2 novel coronavirus pandemic period. Community viral transmission is ongoing at time of this encounter and the emergency department is operating under pandemic response procedures. Lab work and vitals are WNL. Brimson is a send out; not available for a few days. I have talked with the patient about today's findings, in addition to providing specific details for plan of care. Will do a refill of his Brimson as he does seem reliable. Reassessment at the time of disposition demonstrates that the patient is in no acute distress. The patient is stable for discharge, counseling was provided and we discussed in great detail signs and symptoms that would prompt them to return to the Emergency Department. Medication, follow up and supportive care measures were reviewed and discussed. Voices understanding and is agreeable to plan of care. Denies any further questions or concerns at this time. Diagnostics: CBC, CMP, UA, Brimson Therapeutics: None Prescription: Brimson Impression: Encounter for medication refill Flank pain Plan: 1. You were evaluated today on an emergent basis. Your labs are normal. Brimson is a send out. We will call you if you need this adjusted. We can NOT keep refilling your medication in the ED. This MUST be done by your primary care provider. 2. You can alternate Tylenol and ibuprofen as needed for pain and fever management. 3. We encourage you to follow up with [facility] [phone] for re-evaluation and further care/management. 4. If your symptoms should worsen, new symptoms develop or any of the signs and symptoms we discussed should arise please return to the emergency room or call 911 (if needed). Definitive disposition and diagnosis as appropriate pending reevaluation and review of above. kidney Pain Score (Numeric/FACES): 4 - Related Data Allergies Allergy/AdvReac Type Severity Reaction Status Date / Time diazepam [From Valium] Allergy Lightheaded Verified 01/27/21 14:56 ness haloperidol [From Haldol] Allergy Dizziness Verified 01/27/21 14:56 haloperidol lactate Allergy Dizziness Verified 01/27/21 14:56 [From Haldol] quetiapine fumarate Allergy catonic Verified 01/27/21 14:56 [From Seroquel] Home Meds: Home Meds Cyclobenzaprine [Flexeril] 10 mg PO TID PRN #20 tab 03/19/19 [Rx] Diclofenac Sodium [Voltaren] 75 mg PO BIDMEALS PRN #30 tab.cr 03/19/19 [Rx] Brimson Carbonate 300 mg PO BID 30 Days #60 tablet 12/22/20 [Rx] Brimson Carbonate 300 mg PO BID #60 tablet 01/27/21 [Rx] Past Medical History - Past Health History Medical/Surgical History: Denies Medical/Surgical History HEENT History: Reports: None Cardiovascular History: Reports: None Respiratory History: Reports: None Gastrointestinal History: Reports: None Genitourinary History: Reports: None Musculoskeletal History: Reports: Back Pain, Chronic Neurological History: Reports: None Psychiatric History: Reports: Bipolar Endocrine/Metabolic History: Reports: None Hematologic History: Reports: None Immunologic History: Reports: None Oncologic (Cancer) History: Reports: None Dermatologic History: Reports: None - Infectious Disease History Infectious Disease History: Reports: None - Past Surgical History Head Surgeries/Procedures: Reports: None HEENT Surgical History: Reports: None Cardiovascular Surgical History: Reports: None Respiratory Surgical History: Reports: None GI Surgical History: Reports: None Male Surgical History: Reports: None Endocrine Surgical History: Reports: None Neurological Surgical History: Reports: None Oncologic Surgical History: Reports: None Social & Family History - Family History Family Medical History: No Pertinent Family History - Caffeine Use Caffeine Use: Reports: Coffee, Tea Caffeine Use Comment: 20 drinks/day ED ROS GENERAL - Review of Systems Review Of Systems: Comprehensive ROS is negative, except as noted in HPI. ED EXAM, RENAL/ - Physical Exam Exam: See Below (See dictation) Course - Vital Signs Last Recorded V/S: Last Vital Signs Temp 98.2 F 01/27/21 14:51 Pulse 55 L 01/27/21 14:51 Resp 16 01/27/21 14:51 BP 117/79 01/27/21 14:51 Pulse Ox 93 L 01/27/21 14:51 - Orders/Labs/Meds Orders: Active Orders 24 hr Category Date Time Status LITHIUM [REF] Stat Lab 01/27/21 15:13 Received Labs: Laboratory Tests 01/27/21 01/27/21 01/27/21 Range/Units 14:50 15:13 15:13 WBC 5.50 (4.0-11.0) K/uL RBC 4.70 (4.50-5.90) M/uL Hgb 13.7 (13.0-17.0) g/dL Hct 41.6 (38.0-50.0) % MCV 88.5 (80.0-98.0) fL MCH 29.1 (27.0-32.0) pg MCHC 32.9 (31.0-37.0) g/dL RDW Std Deviation 47.2 (28.0-62.0) fl RDW Coeff of Jose 15 (11.0-15.0) % Plt Count 205 (150-400) K/uL MPV 11.00 (7.40-12.00) fL Neut % (Auto) 46.7 L (48.0-80.0) % Lymph % (Auto) 46.0 H (16.0-40.0) % [place] % (Auto) 6.0 (0.0-15.0) % Eos % (Auto) 1.1 (0.0-7.0) % Baso % (Auto) 0.2 (0.0-1.5) % Neut # (Auto) 2.6 (1.4-5.7) K/uL Lymph # (Auto) 2.5 H (0.6-2.4) K/uL [place] # (Auto) 0.3 (0.0-0.8) K/uL Eos # (Auto) 0.1 (0.0-0.7) K/uL Baso # (Auto) 0.0 (0.0-0.1) K/uL Nucleated RBC % 0.0 /100WBC Nucleated RBCs # 0 K/uL Sodium 141 (136-148) mmol/L Potassium 4.0 (3.5-5.1) mmol/L Chloride 105 (98-107) mmol/L Carbon Dioxide 27.3 (21.0-32.0) mmol/L BUN 10 (7.0-18.0) mg/dL Creatinine 1.0 (0.8-1.3) mg/dL Est Cr Clr Drug Dosing 87.22 mL/min Estimated GFR (MDRD) > 60.0 ml/min Glucose 93 (74-106) mg/dL Calcium 9.2 (8.5-10.1) mg/dL Total Bilirubin 0.4 (0.2-1.0) mg/dL AST 22 (15-37) IU/L ALT 53 (14-63) IU/L Alkaline Phosphatase 67 (46-116) U/L Total Protein 7.7 (6.4-8.2) g/dL Albumin 4.0 (3.4-5.0) g/dL Globulin 3.7 (2.6-4.0) g/dL Albumin/Globulin Ratio 1.1 (0.9-1.6) Urine Color YELLOW Urine Appearance CLEAR Urine pH 7.0 (5.0-8.0) Ur Specific Martin 1.015 (1.001-1.035) Urine Protein NEGATIVE (NEGATIVE) mg/dL Urine Glucose (UA) NEGATIVE (NEGATIVE) mg/dL Urine Ketones NEGATIVE (NEGATIVE) mg/dL Urine Occult Blood NEGATIVE (NEGATIVE) Urine Nitrite NEGATIVE (NEGATIVE) Urine Bilirubin NEGATIVE (NEGATIVE) Urine Urobilinogen 0.2 (<2.0) EU/dL Ur Leukocyte Esterase NEGATIVE (NEGATIVE) Departure - Departure Time of Disposition: 16:18 Disposition: Home, Self-Care 01 Clinical Impression: Bilateral flank pain, Encounter for medication refill - Discharge Information Prescriptions: Brimson Carbonate 300 mg PO BID #60 tablet Instructions: Medicine Refill at the Emergency Department Referrals: PCP,None [Primary Care Provider] - Forms: ED Department Discharge Additional Instructions: The following information is given to patients seen in the emergency department who are being discharged to home. This information is to outline your options for follow-up care. We provide all patients seen in our emergency department with a follow-up referral. The need for follow-up, as well as the timing and circumstances, are variable depending upon the specifics of your emergency department visit. If you don't have a primary care physician on staff, we will provide you with a referral. We always advise you to contact your personal physician following an emergency department visit to inform them of the circumstance of the visit and for follow-up with them and/or the need for any referrals to a consulting specialist. The emergency department will also refer you to a specialist when appropriate. This referral assures that you have the opportunity for follow-up care with a specialist. All of these measure are taken in an effort to provide you with optimal care, which includes your follow-up. Under all circumstances we always encourage you to contact your private physician who remains a resource for coordinating your care. When calling for follow-up care, please make the office aware that this follow-up is from your recent emergency room visit. If for any reason you are refused follow-up, please contact the [facility] Emergency Department at and asked to speak to the emergency department charge nurse. [facility] [address] [place] [address] [id number] Thank you for choosing the [facility] emergency department in [place] for your medical needs today. It was a pleasure caring for you. Today you were seen in the emergency department for medication refill. 1. You were evaluated today on an emergent basis. Your labs are normal. Brimson is a send out. We will call you if you need this adjusted. We can NOT keep refilling your medication in the ED. This MUST be done by your primary care provider. 2. You can alternate Tylenol and ibuprofen as needed for pain and fever management. 3. We encourage you to follow up with [facility] [phone] for re-evaluation and further care/management. 4. If your symptoms should worsen, new symptoms develop or any of the signs and symptoms we discussed should arise please return to the emergency room or call 911 (if needed). Sepsis Event Note (ED) - Focused Exam Vital Signs: Vital Signs Temp Pulse Resp BP Pulse Ox 01/27/21 14:51 98.2 F 55 L 16 117/79 93 L - My Orders Last 24 Hours: My Active Orders 01/27/21 15:13 LITHIUM [REF] Stat - Assessment/Plan Last 24 Hours: My Active Orders 01/27/21 15:13 LITHIUM [REF] Stat
[2021-01-27 16:05] LABS: BLOOD UREA NITROGEN,BUN 10 mg/dL (7.0-18.0); CARBON DIOXIDE,CO2 27.3 mmol/L (21.0-32.0); CHLORIDE,CL 105 mmol/L (98-107); GLUCOSE RANDOM 93 mg/dL (74-106); SODIUM,NA 141 mmol/L (136-148)
[2021-01-27 16:23] VITALS: BP 95/62; PULSE 57
== END 2021-01-27 16:50 | disposition home or self-care (01) ==
LOC: MW.ED 14:10
DX: R10.9 Unspecified abdominal pain (principal); Z76.0 Encounter for issue of repeat prescription; Z88.8 Allergy status to other drugs, medicaments and biological substances
CPT/HCPCS: 36415; 80053; 80178; 81003; 85025; 99283; 99284

== ENCOUNTER 2021-03-18 06:27 | Emergency (ER) | payer SELFPAY ==
[2021-03-18] MEDS ORDERED: Morphine 4 MG/ML Syringe IVPUSH ONE (06:47)
--- NOTE | 2021-03-18 06:58 | EDM.PDOC ---
<Gautam Beltrán - Last Filed: 03/18/21 06:56> ED HPI GENERAL MEDICAL PROBLEM - General Chief Complaint: Cardiovascular Problem Stated Complaint: CHEST PAIN Time Seen by Provider: 03/18/21 06:45 - History of Present Illness INITIAL COMMENTS - FREE TEXT/NARRATIVE: CHIEF COMPLAINT(S): Left-sided chest pain HISTORY OF PRESENT ILLNESS: This is a 45-year-old and with a past medical history of bipolar on lithium who comes to the emergency department with a chief complaint of left-sided chest pain. The patient states that approximately 5 days ago he started to experience left-sided chest pain which he describes as sharp and worse with movement. He denies any diaphoresis, nausea, vomiting, shortness of breath. He states he took ibuprofen without any relief. He states that it has been intermittent and initially thought it was because he lifts heavy things at work. However the pain has worsened and is now 9 out of 10. He states that he started to notice that the veins on the left side of his chest wall were hardened and tender and they extend all the way to the left upper quadrant on the exterior portion of his body. He denies any recent travel, recent surgery, prior history of DVT or PE. He denies any cough or hemoptysis. He states that he does have some mild weight loss but he is also fasting for Ramadan. He denies any night sweats. He denies any headache, facial swelling, numbness, tingling, or weakness. He denies any family history of CAD or CHF or personal history of CAD or CHF. REVIEW OF SYSTEMS: Constitutional: Denies fever, chills. Eyes: Denies eye pain Ears, Nose, Mouth, & Throat: Denies earache Cardiovascular: Positive for left-sided chest wall pain Respiratory: Denies shortness of breath Gastrointestinal: Denies Nausea, vomiting, diarrhea, hematochezia. Genitourinary: Denies hematuria Skin:Denies a rash MSK: Denies joint pain Neurological: Denies blurred vision Psychiatric: Denies depression PAST MEDICAL HISTORY: As per history of present illness and as reviewed below otherwise noncontributory. SURGICAL HISTORY: As per history of present illness and as reviewed below otherwise noncontributory. SOCIAL HISTORY: As per history of present illness and as reviewed below otherwise noncontributory. FAMILY HISTORY: As per history of present illness and as reviewed below otherwise noncontributory. EXAMINATION OF ORGAN SYSTEMS/BODY AREAS: Constitutional: Blood pressure is 138/74, heart rate 76, respirate 17 with an oxygen saturation 98% on room air. Temperature 36.6 General: Young man does not appear to be any acute distress. Psychiatric: Appropriate mood and affect. Eyes: No scleral icterus or conjunctival erythema pupils are equal round reactive to light. Extraocular movements intact. ENMT: Moist mucous membranes. No pharyngeal erythema there is left anterior nontender mobile cervical lymphadenopathy. No supraclavicular lymphadenopathy. No neck masses noted neck was supple. No trismus or drooling. Cardiovascular: Regular, rate, and rhythm. No gallops, murmurs, or rubs. Bilateral upper extremity pulses symmetric and intact. No peripheral edema. No JVD. The patient has distended veins along the anterior left chest which are hardened and tender to palpation which extends all the way to the left upper quadrant. There is no overlying skin changes. Respiratory: Lungs clear to auscultation bilaterally. No wheezes, rales, or rhonchi. Gastrointestinal: Soft, non-tender, non-distended. Normoactive bowel sounds Genitourinary: No suprapubic tenderness Musculoskeletal: Normal range of motion. Skin: No lesions or abrasions. Neurological: Alert, GCS 15 strength and sensation grossly intact MEDICAL DECISION MAKING AND COURSE IN THE ED WITH INTERPRETATION/REVIEW OF DIAGNOSTIC STUDIES: This is a 45-year-old man with a past medical history of bipolar on lithium who comes to the emergency department with 5 days of worsening left-sided sharp chest pain with distended veins unilaterally on the patient's anterior chest wall with some anterior cervical lymphadenopathy which is nontender and mobile. At this time EKG was obtained which did not reveal any acute signs of ischemia. At this time differential includes thoracic outlet syndrome, SVC syndrome however this is usually on the right side. We will obtain a CTA of the thorax to evaluate for any abnormality. Also obtain a duplex of the left upper extremity to evaluate for DVT. Will obtain labs including CBC, BMP, coags. We will provide the patient with 4 mg of IV morphine. Time: 0630 Twelve-lead EKG interpreted by myself. Normal sinus rhythm at a rate of 64beats per minute. Normal axis. AL interval is 145ms. QRS duration is [address] segments are normal without elevations or depressions. No T wave inversions no Q waves present. Hypertrophy not noted. No changes demonstrated from prior EKG dated 10/25/2017. Interpretation: Sinus rhythm At the time of signout patient was pending labs and imaging. [facility] pending further work-up and disposition. DISPOSITION: Patient was signed out to [facility] day team physician pending further work-up CONDITION: Fair PROCEDURES: None FINAL IMPRESSION(S)/DIAGNOSES: 1. Acute left-sided chest pain 2. Acute distended anterior chest wall veins Gautam Beltrán M.D. Left Chest Pain Score (Numeric/FACES): 9 - Related Data Allergies Allergy/AdvReac Type Severity Reaction Status Date / Time diazepam [From Valium] Allergy Lightheaded Verified 03/18/21 06:35 ness haloperidol [From Haldol] Allergy Dizziness Verified 03/18/21 06:35 haloperidol lactate Allergy Dizziness Verified 03/18/21 06:35 [From Haldol] quetiapine fumarate Allergy catonic Verified 03/18/21 06:35 [From Seroquel] Home Meds: Home Meds [place] Carbonate 300 mg PO BID #60 tablet 01/27/21 [Rx] Past Medical History - Past Health History Medical/Surgical History: Denies Medical/Surgical History HEENT History: Reports: None Cardiovascular History: Reports: None Respiratory History: Reports: None Gastrointestinal History: Reports: None Genitourinary History: Reports: None Musculoskeletal History: Reports: Back Pain, Chronic Neurological History: Reports: None Psychiatric History: Reports: Bipolar Endocrine/Metabolic History: Reports: None Hematologic History: Reports: None Immunologic History: Reports: None Oncologic (Cancer) History: Reports: None Dermatologic History: Reports: None - Infectious Disease History Infectious Disease History: Reports: None - Past Surgical History Head Surgeries/Procedures: Reports: None HEENT Surgical History: Reports: None Cardiovascular Surgical History: Reports: None Respiratory Surgical History: Reports: None GI Surgical History: Reports: None Male Surgical History: Reports: None Endocrine Surgical History: Reports: None Neurological Surgical History: Reports: None Musculoskeletal Surgical History: Reports: Other (See Below) Other Musculoskeletal Surgeries/Procedures:: back pain Oncologic Surgical History: Reports: None Social & Family History - Family History Family Medical History: No Pertinent Family History - Tobacco Use Tobacco Use Status *Q: Never Tobacco User Second Hand Smoke Exposure: No - Caffeine Use Caffeine Use: Reports: None Caffeine Use Comment: 20 drinks/day - Recreational Drug Use Recreational Drug Use: No ED ROS GENERAL - Review of Systems Review Of Systems: See Below ED EXAM, GENERAL - Physical Exam Exam: See Below Departure - Departure Disposition: Home, Self-Care 01 Clinical Impression: Engorgement of vein Instructions: Edema, [id number] Referrals: PCP,None [Primary Care Provider] - Forms: ED Department Discharge Additional Instructions: The following information is given to patients seen in the emergency department who are being discharged to home. This information is to outline your options for follow-up care. We provide all patients seen in our emergency department with a follow-up referral. The need for follow-up, as well as the timing and circumstances, are variable depending upon the specifics of your emergency department visit. If you don't have a primary care physician on staff, we will provide you with a referral. We always advise you to contact your personal physician following an emergency department visit to inform them of the circumstance of the visit and for follow-up with them and/or the need for any referrals to a consulting sp ecialist. The emergency department will also refer you to a specialist when appropriate. This referral assures that you have the opportunity for follow-up care with a specialist. All of these measure are taken in an effort to provide you with optimal care, which includes your follow-up. Under all circumstances we always encourage you to contact your private physician who remains a resource for coordinating your care. When calling for follow-up care, please make the office aware that this follow-up is from your recent emergency room visit. If for any reason you are refused follow-up, please contact the [facility] Emergency Department at and asked to speak to the emergency department charge nurse. Please follow up with your primary care physician. If you do not have a primary care physician, see below: [facility] [address] [place] [id number] [facility] [address] [place] [address] You were seen today for these pains on your chest that popped out when you are lifting heavy objects. We has been concerned about as diagnosis: Thoracic outlet syndrome we did a CAT scan and ultrasound we do not see any mass or clot causing these veins to become enlarged. We also did EKGs for her heart as well. We will like for you to follow-up with primary care and if you have any other complaints to please return to the ED. Above is number you can call to obtain a primary care appointment. Sepsis Event Note (ED) - Evaluation Sepsis Screening Result: No Definite Risk <Osman Bains - Last Filed: 03/18/21 09:39> Course - Vital Signs Last Recorded V/S: Last Vital Signs Temp 97.9 F 03/18/21 06:35 Pulse 57 L 03/18/21 08:51 Resp 13 03/18/21 08:51 BP 119/54 L 03/18/21 08:51 Pulse Ox 99 03/18/21 08:51 - Orders/Labs/Meds Orders: Active Orders 24 hr Category Date Time Status EKG Documentation Completion [RC] STAT Care 03/18/21 06:46 Active Labs: Laboratory Tests 03/18/21 03/18/21 03/18/21 Range/Units 06:42 06:42 06:42 WBC 5.87 (4.0-11.0) K/uL RBC 4.75 (4.50-5.90) M/uL Hgb 13.9 (13.0-17.0) g/dL Hct 41.8 (38.0-50.0) % MCV 88.0 (80.0-98.0) fL MCH 29.3 (27.0-32.0) pg MCHC 33.3 (31.0-37.0) g/dL RDW Std Deviation 42.9 (28.0-62.0) fl RDW Coeff of Jose 13 (11.0-15.0) % Plt Count 229 (150-400) K/uL MPV 9.70 (7.40-12.00) fL Neut % (Auto) 50.7 (48.0-80.0) % Lymph % (Auto) 41.1 H (16.0-40.0) % [place] % (Auto) 6.5 (0.0-15.0) % Eos % (Auto) 1.4 (0.0-7.0) % Baso % (Auto) 0.3 (0.0-1.5) % Neut # (Auto) 3.0 (1.4-5.7) K/uL Lymph # (Auto) 2.4 (0.6-2.4) K/uL [place] # (Auto) 0.4 (0.0-0.8) K/uL Eos # (Auto) 0.1 (0.0-0.7) K/uL Baso # (Auto) 0.0 (0.0-0.1) K/uL Nucleated RBC % 0.0 /100WBC Nucleated RBCs # 0 K/uL INR 1.02 APTT 26.0 (18.6-31.3) SEC Sodium 140 (136-148) mmol/L Potassium 4.2 (3.5-5.1) mmol/L Chloride 104 (98-107) mmol/L Carbon Dioxide 25.3 (21.0-32.0) mmol/L BUN 14 (7.0-18.0) mg/dL Creatinine 1.2 (0.8-1.3) mg/dL Est Cr Clr Drug Dosing 67.83 mL/min Estimated GFR (MDRD) > 60.0 ml/min Glucose 120 H (74-106) mg/dL Calcium 9.0 (8.5-10.1) mg/dL Meds: Medications Discontinued Medications Generic Name Dose Route Start Last Admin Trade Name Freq PRN Reason Stop Dose Admin Iopamidol 130 ml 03/18/21 08:47 03/18/21 08:47 Iopamidol 755 Mg/Ml 500 Ml Multipack Bottle IVPUSH 03/18/21 08:48 130 ml ONETIME STA Administration Morphine Sulfate 4 mg 03/18/21 06:47 03/18/21 07:19 Morphine 4 Mg/Ml Syringe IVPUSH 03/18/21 06:48 4 mg ONETIME ONE Administration - Re-Assessments/Exams Free Text/Narrative Re-Assessment/Exam: 03/18/21 09:33 Patient was signed out to me by previous provider pending a CT and ultrasound. The previous provider did not believe that this was cardiac related EKG did not show any ischemic changes. He ordered the images to look for DVT or thoracic outlet syndrome. Patient's images are negative for clots or thoracic outlet syndrome. I called the radiologist Dr. Allen to clarify his CT angiogram reading and he states that he does not see any thoracic outlet findings. Patient made aware of these findings patient will be referred to primary care and patient understands fully and is given strict return precautions. Departure - Departure Time of Disposition: 09:34 Condition: Good Sepsis Event Note (ED) - Focused Exam Vital Signs: Vital Signs Temp Pulse Resp BP Pulse Ox 03/18/21 08:51 57 L 13 119/54 L 99 03/18/21 07:21 76 14 128/76 100 03/18/21 06:35 97.9 F 76 17 138/74 98
[2021-03-18 07:10] LABS: BLOOD UREA NITROGEN,BUN 14 mg/dL (7.0-18.0); CARBON DIOXIDE,CO2 25.3 mmol/L (21.0-32.0); CHLORIDE,CL 104 mmol/L (98-107); GLUCOSE RANDOM 120 mg/dL (74-106); POTASSIUM,K 4.2 mmol/L (3.5-5.1); SODIUM,NA 140 mmol/L (136-148)
[2021-03-18] MEDS ORDERED: Iopamidol 755 MG/ML 500 ML Multipack Bottle IVPUSH STA (08:47)
--- NOTE | 2021-03-18 09:10 | CT ---
CLINICAL INFORMATION: 45-year-old with left-sided chest pain with venous enlargement on the left chest wall. TECHNIQUE: Arterial phase CT angiogram of the left upper extremity was obtained in abduction and adduction. 3D and/or MIP angiographic reconstructions were performed on a separate independent workstation with concurrent supervision of the image post processing in order to further delineate the angiographic anatomy for accurate interpretation. Contrast: 130 mL of Isovue 370 intravenous contrast was injected uneventfully prior to image acquisition. Radiation Dose Estimate (Total Exam DLP): 348.8 mGy-cm. COMPARISON: None available. FINDINGS: CT Angiography Findings: Suboptimal evaluation as imaging is timed for arterial phase. Left upper extremity arterial system is widely patent without evidence for narrowing with the extremity abducted. Limited venous evaluation does not demonstrate any significant caliber changes at the left subclavian vein with the extremity abducted. Visceral Findings: Visualized portions of the lungs are unremarkable without focal airspace opacities or pleural effusions. No gross intracranial abnormality on this nondedicated examination. IMPRESSION: 1. Suboptimal evaluation as imaging is timed for arterial phase. Left upper extremity arterial system widely patent without evidence for significant narrowing with extremity in abducted position. Limited venous evaluation does not demonstrate any significant caliber changes at the left subclavian vein with the extremity abducted. Findings are not suggestive of significant thoracic outlet compression. Evaluation with left upper extremity venous ultrasound performed with the patient`s extremity in abducted and adducted positions may be helpful for further characterization. Please note that all CT scans at this facility use dose modulation, iterative reconstruction, and/or weight-based dosing when appropriate to reduce radiation dose to as low as reasonably achievable. Dictated by Yassine Allen MD @ 03/18/2021 9:27:[address] Yassine Allen @ Mar 18 2021 9:27AM
--- NOTE | 2021-03-18 09:14 | US ---
INDICATION: Venous engorgement left chest wall. A tubular structures felt from a upper abdomen traveling superiorly toward the ribs up to the nipple region where it turns laterally and inferiorly towards the axilla. COMPARISON: None FINDINGS: Ultrasound of the venous drainage of the left upper extremity shows no evidence of deep venous thrombosis. There is normal antegrade flow from the brachial vein superiorly through the subclavian and innominate veins. There is normal respiratory variation and compressibility of the veins. There is no sign of superficial venous thrombosis, with widely patent, easily compressible cephalic and basilic veins. The internal jugular veins are patent bilaterally. Sonography of the area of palpable concern reveals no sonographically evident abnormality. No visible vascular structure accounting for the clinically described abnormality. A CT should be considered for further evaluation IMPRESSION: No evidence of deep or superficial venous thrombosis on ultrasound examination of the left upper extremity. No sonographic abnormality regarding the area of palpable concern. A CT should be considered for further evaluation Dictated by Nelson Gong MD @ 03/18/2021 9:13:[address] Nelson Gong @ Mar 18 2021 9:13AM
[2021-03-18 09:34] VITALS: BP 106/62; PULSE 56
== END 2021-03-18 09:44 | disposition home or self-care (01) ==
LOC: MW.ED 06:27
DX: R07.89 Other chest pain (principal); I87.8 Other specified disorders of veins; Z88.8 Allergy status to other drugs, medicaments and biological substances; Z79.899 Other long term (current) drug therapy
CPT/HCPCS: 36415; 71275; 80048; 85025; 85610; 85730; 93005; 93971; 96374; 99285; J2270; Q9967; 93010; 99284

== ENCOUNTER 2021-04-07 12:07 | Emergency (ER) | payer SELFPAY ==
--- NOTE | 2021-04-07 12:49 | EDM.PDOC ---
ED HPI GENERAL MEDICAL PROBLEM - General Chief Complaint: General Stated Complaint: MENTAL HEALTH ISSUE Time Seen by Provider: 04/07/21 12:25 - History of Present Illness INITIAL COMMENTS - FREE TEXT/NARRATIVE: CHIEF COMPLAINT(S): Here for a med refill HISTORY OF PRESENT ILLNESS: This is a 45-year-old man with a past medical history of bipolar 1 disorder who comes to the emergency department with a chief complaint of medication refill. The patient states that he currently is not having any symptoms. He states that he was diagnosed with bipolar in 2011 and since moving here he was being evaluated at [facility] for his bipolar and was receiving his lithium prescription through them. He states that during his trips and a change in [facility] they no longer are able to provide him the medication secondary to a change in their policy. He states that "I except to my illness." He states that he is self-employed" this is the problem with the [employer] system." He states that he needs a refill of his medication. He states that he understands that this is not the appropriate place to obtain his medication. He denies any suicidal ideation, homicidal ideation, visual hallucination or auditory elucidation. He denies any symptoms at all whatsoever. REVIEW OF SYSTEMS: Constitutional: Denies fever, chills. Eyes: Denies eye pain Ears, Nose, Mouth, & Throat: Denies earache Cardiovascular: Denies chest pain Respiratory: Denies shortness of breath Gastrointestinal: Denies Nausea, vomiting, diarrhea, hematochezia. Genitourinary: Denies hematuria Skin:Denies a rash MSK: Denies joint pain Neurological: Denies blurred vision Psychiatric: Denies depression, suicidal ideation, hallucinations PAST MEDICAL HISTORY: As per history of present illness and as reviewed below otherwise noncontributory. SURGICAL HISTORY: As per history of present illness and as reviewed below otherwise noncontributory. SOCIAL HISTORY: As per history of present illness and as reviewed below otherwise noncontributory. FAMILY HISTORY: As per history of present illness and as reviewed below otherwise noncontributory. EXAMINATION OF ORGAN SYSTEMS/BODY AREAS: Constitutional: Blood pressure was 94/66, heart rate 86, respiratory rate 18 with an oxygen saturation 98% on room air. Temperature 36.2 General: Overall well-appearing man who is in no acute distress Psychiatric: Does not appear to be responding to internal stimuli. The patient is mildly manic. No homicidal or suicidal ideation. Eyes: No scleral icterus or conjunctival erythema ENMT: Moist mucous membranes. No pharyngeal erythema Cardiovascular: Regular, rate, and rhythm. No gallops, murmurs, or rubs. Bilateral upper extremity pulses symmetric and intact. No peripheral edema. No JVD. Respiratory: Lungs clear to auscultation bilaterally. No wheezes, rales, or rhonchi. Gastrointestinal: Soft, non-tender, non-distended. Normoactive bowel sounds Genitourinary: No suprapubic tenderness Musculoskeletal: Normal range of motion. Skin: No lesions or abrasions. Neurological: Alert, GCS 15 MEDICAL DECISION MAKING AND COURSE IN THE ED WITH INTERPRETATION/REVIEW OF DIAGNOSTIC STUDIES: This is a 45-year-old and with a past medical history of bipolar disorder who comes to the emergency department with encounter to get medication refill of his lithium. At this time I did have a lengthy discussion with the patient given that lithium is a drug that needs to be monitored by a physician. I did discuss with him that the emergency department is not the appropriate place to obtain his medication. I did discuss with him that he needed to follow-up with a primary care physician and referral for behavioral health. We did provide him with contact information for other behavioral health specialist in the area. We also provide the patient with a follow-up with primary care physician. I did discuss with patient I will give him 1 week supply of his lithium but beyond that I would not be prescribing any more lithium for the patient. I did discuss that if he had any new or worsening symptoms he can return to the emergency department. DISPOSITION: The patient was discharged home in stable condition. The patient will follow up with primary care physician, behavioral health specialist CONDITION: Good PROCEDURES: None FINAL IMPRESSION(S)/DIAGNOSES: 1. Acute encounter for medication refill 2. Acute mild manic episode Gautam Beltrán M.D. - Related Data Allergies Allergy/AdvReac Type Severity Reaction Status Date / Time diazepam [From Valium] Allergy Lightheaded Verified 04/07/21 12:58 ness haloperidol [From Haldol] Allergy Dizziness Verified 04/07/21 12:58 haloperidol lactate Allergy Dizziness Verified 04/07/21 12:58 [From Haldol] quetiapine fumarate Allergy catonic Verified 04/07/21 12:58 [From Seroquel] Home Meds: Home Meds [place] Carbonate 300 mg PO BID #60 tablet 01/27/21 [Rx] [place] Carbonate 300 mg PO BID #14 tablet 04/07/21 [Rx] Past Medical History - Past Health History Medical/Surgical History: Denies Medical/Surgical History HEENT History: Reports: None Cardiovascular History: Reports: None Respiratory History: Reports: None Gastrointestinal History: Reports: None Genitourinary History: Reports: None Musculoskeletal History: Reports: Back Pain, Chronic Neurological History: Reports: None Psychiatric History: Reports: Bipolar Endocrine/Metabolic History: Reports: None Hematologic History: Reports: None Immunologic History: Reports: None Oncologic (Cancer) History: Reports: None Dermatologic History: Reports: None - Infectious Disease History Infectious Disease History: Reports: None - Past Surgical History Head Surgeries/Procedures: Reports: None HEENT Surgical History: Reports: None Cardiovascular Surgical History: Reports: None Respiratory Surgical History: Reports: None GI Surgical History: Reports: None Male Surgical History: Reports: None Endocrine Surgical History: Reports: None Neurological Surgical History: Reports: None Musculoskeletal Surgical History: Reports: Other (See Below) Other Musculoskeletal Surgeries/Procedures:: back pain Oncologic Surgical History: Reports: None Social & Family History - Family History Family Medical History: No Pertinent Family History - Caffeine Use Caffeine Use: Reports: None Caffeine Use Comment: 20 drinks/day ED ROS GENERAL - Review of Systems Review Of Systems: See Below ED EXAM, GENERAL - Physical Exam Exam: See Below Course - Vital Signs Last Recorded V/S: Last Vital Signs Temp 36.2 C 04/07/21 12:13 Pulse 79 04/07/21 12:56 Resp 16 04/07/21 12:56 BP 96/65 04/07/21 12:56 Pulse Ox 97 04/07/21 12:56 Departure - Departure Time of Disposition: 12:48 Disposition: Home, Self-Care 01 Condition: Fair Clinical Impression: Bipolar 1 disorder, manic, mild - Discharge Information *PRESCRIPTION DRUG MONITORING PROGRAM REVIEWED*: No *COPY OF PRESCRIPTION DRUG MONITORING REPORT IN PATIENT BINTA: No Prescriptions: [place] Carbonate 300 mg PO BID #14 tablet Instructions: Managing Bipolar Disorder, [place] Toxicity Referrals: PCP,None [Primary Care Provider] - Forms: ED Department Discharge Additional Instructions: You were evaluated today on an emergent basis. At this time we did refill your lithium for 7 days. As discussed with you lithium does require frequent monitoring by primary care physician or psychiatric physician. The emergency department is not the appropriate place to get refills of your lithium. We will provide you with information to contact to set up a appointment with a primary care physician or a psychiatric physician in order to establish care so they can monitor your bipolar disorder and your lithium prescription. In addition we did provide you with insurance help at the front end driver please use these resources. If you have any new or worsening symptoms please return to the emergency department. [facility] [address] [place], [place] [id number] [facility] [address] [place] [address] [facility] [phone] The patient is informed of any results of their evaluation and diagnostic workup and all questions are answered. They are given discharge instructions and return precautions. The patient is stable for discharge. The patient states they understand and agree with the plan and that they will return if their symptoms g et worse or if they have any new concerns. The following information is given to patients seen in the emergency department who are being discharged to home. This information is to outline your options for follow-up care. We provide all patients seen in our emergency department with a follow-up referral. The need for follow-up, as well as the timing and circumstances, are variable depending upon the specifics of your emergency department visit. If you don't have a primary care physician on staff, we will provide you with a referral. We always advise you to contact your personal physician following an emergency department visit to inform them of the circumstance of the visit and for follow-up with them and/or the need for any referrals to a consulting specialist. The emergency department will also refer you to a specialist when appropriate. This referral assures that you have the opportunity for follow-up care with a specialist. All of these measure are taken in an effort to provide you with optimal care, which includes your follow-up. Under all circumstances we always encourage you to contact your private physician who remains a resource for coordinating your care. When calling for follow-up care, please make the office aware that this follow-up is from your recent emergency room visit. If for any reason you are refused follow-up, please contact the [facility] Emergency Department at and asked to speak to the emergency department charge nurse.
[2021-04-07 12:58] VITALS: BP 95/66; PULSE 86
== END 2021-04-07 12:57 | disposition home or self-care (01) ==
LOC: MW.ED 12:07
DX: F31.11 Bipolar disorder, current episode manic without psychotic features, mild (principal); Z76.0 Encounter for issue of repeat prescription; Z88.8 Allergy status to other drugs, medicaments and biological substances
CPT/HCPCS: 99281; 99283